=== PATIENT | male | born 1975 ===

== ENCOUNTER 2022-01-27 02:31 | Emergency (ER) | payer OTHER, SELFPAY ==
--- NOTE | ~2022-01-27 | CT_ITS ---
EXAMINATION: CT ABDOMEN AND PELVIS WITHOUT CONTRAST CLINICAL INFORMATION: Right flank pain COMPARISON: None TECHNIQUE: Multidetector volumetric imaging was performed from the superior aspect of the liver through the pubic symphysis. Sagittal and coronal reformatted images were obtained on the technologist's workstation. This CT examination was performed using dose optimization techniques as appropriate, variously including the following: *Automated exposure control *Adjustment of mA and/or kV according to patient size (this includes techniques or standardized protocols for targeted exams where dose is matched to indication/reason for exam; i.e. extremities or head) *Use of iterative reconstruction technique DLP: 732 mGy-cm FINDINGS: LUNG BASES: The visualized lung bases are unremarkable. LIVER, GALLBLADDER, AND BILIARY TREE: The liver is normal in size, shape, and attenuation. No focal hepatic lesion or biliary ductal dilatation is present. The gallbladder is unremarkable with no evidence of radiopaque gallstones, gallbladder wall thickening, or obvious pericholecystic inflammatory changes. PANCREAS: Unremarkable. SPLEEN: Unremarkable. ADRENAL GLANDS: Unremarkable. KIDNEYS AND URETERS: The kidneys are normal in size, shape, and attenuation. No hydronephrosis, hydroureter, or calculi seen. No perinephric stranding. BLADDER: Decompressed with no gross abnormality. GASTROINTESTINAL TRACT: The small and large bowel are unremarkable. The appendix is unremarkable. ABDOMINAL WALL: No significant hernia is appreciated. LYMPH NODES: Normal. VASCULAR: Unremarkable. PELVIC VISCERA: The prostate and seminal vesicles are unremarkable. OSSEOUS STRUCTURES: No acute or suspicious osseous abnormality. Spinal fusion hardware at L5-S1. Mild degenerative changes in the hips. CT/CT abdomen pelvis wo IV con IMPRESSION: No acute findings in the abdomen or pelvis. No hydronephrosis or nephrolithiasis. Normal appendix. Fleischner guidelines were followed.
[2022-01-27 02:45] VITALS: BP 157/109; PULSE 88; RESP 20; TEMP 36.7; O2SAT 99; BMI 32.5
[2022-01-27 03:31] LABS: Hematocrit 40.3 % (42.0-52.0); Hemoglobin 14.4 g/dl (14.0-18.0); Mean Corpuscular HGB Conc 35.7 g/dl (31.0-36.0); Mean Corpuscular Volume 89.6 fL (80.0-98.0); Mean Platelet Volume 8.8 fL (9.4-12.4); Platelet Count 343 X10*3/uL (160-400); Red Cell Distribution Width 11.4 % (11.0-16.0); White Blood Count 7.8 X10*3/uL (4.8-10.8)
[2022-01-27 03:54] LABS: Alanine Aminotransferase 28 U/L (0-40); Albumin Level 4.3 g/dL (3.5-5.0); Alkaline Phosphatase 65 U/L (39-117); Anion Gap 15 (12-20); Aspartate Amino Transferase 15 U/L (5-37); Bilirubin Direct 0.2 mg/dL (0.0-0.5); Bilirubin Total 0.4 mg/dL (0.0-1.0); Blood Urea Nitrogen 9 mg/dL (9-16); Calcium 9.3 mg/dL (8.4-10.2); Carbon Dioxide 23 mmol/L (22-29); Chloride 105 mmol/L (96-108); Creatinine Clr Calc Pharmacy 133.1; Estimated Glomerular Filt Rate > 60; Glucose Random 119 mg/dL (60-115); Lipase 15 U/L (8-78); Potassium 3.9 mmol/L (3.3-5.1); Sodium 139 mmol/L (135-145)
[2022-01-27 04:00] VITALS: BP 157/91; PULSE 81; RESP 18; TEMP 36.8; O2SAT 98
--- NOTE | 2022-01-27 04:52 | ED_ITS ---
HPI - Back Pain/Injury General Chief Complaint: Back Pain/Injury Stated Complaint: severe back pain Time Seen by Provider: 01/27/22 04:51 History of Present Illness HPI Narrative: Patient is a 46-year-old male no history kidney stones presents today with having back pain in the right flank area nonradiating. No fever no chills no pain on urination. No bowel urinary incontinence. No focal weakness. Pain is sharp has a previous history of back Related Data Previous Rx's Medication Instructions Recorded cyclobenzaprine 10 mg tablet 10 mg PO TID PRN pain #14 tabs 01/27/22 Allergies Allergy/AdvReac Type Severity Reaction Status Date / Time aspirin Allergy Unknown Unknown Verified 01/27/22 05:32 naproxen [From ALEVE] Allergy Unknown SWELLING Verified 01/27/22 05:32 OF THE MOUTH Review of Systems Review of Systems: Positive right flank pain no nausea PMFSH Social History Social History Advance Directives: No Physical Exam Vital Signs: Vital Signs: Last Vital Signs Temp 98.2 F 01/27/22 05:31 Pulse 82 01/27/22 05:31 Resp 14 01/27/22 05:31 BP 132/90 H 01/27/22 05:31 Pulse Ox 98 01/27/22 04:00 O2 Del Method 01/27/22 04:00 O2 Flow Rate 99 01/27/22 05:31 BMI result Body Mass Index 32.5 Appearance: Alert. Oriented X3. No acute distress. Eyes: Pupils equal, round and reactive to light. ENT: Pharynx normal. Neck: Normal inspection. Neck supple. No lymph nodes noted. No crepitus CVS: Normal heart rate and rhythm. Pulses normal. Normal S1 and S2 Respiratory: No respiratory distress. Breath sounds normal. No Wheezing. No rales Abdomen: Soft and nontender. No rigidity. No distention. good BS x4 Skin: Skin warm and dry. Normal skin color. Normal skin turgor. Extremities: No lower extremity edema. Neurovascular intact to all extremities. No Lacerations. No Rash Neuro: Oriented X 3. No motor deficit. No sensory deficit. Moving all extermities. No slurred speech MDM - Back Pain/Injury MDM Narrative Medical decision making narrative: CT negative for any acute evidence of kidney stone. Patient's white count is normal. Urine showed no signs of infection. No bowel urinary incontinence. Will have patient follow-up on outpatient basis for his back pain. Lab Data Result diagrams: 01/27/22 03:01/27/22 03:26 Labs: Lab Results 01/27/22 01/27/22 01/27/22 Range/Units 03: 03:26 05:02 WBC 7.8 (4.8-10.8) X10*3/uL RBC 4.50 L (4.60-5.80) X10*6/uL Hgb 14.4 (14.0-18.0) g/dl Hct 40.3 L (42.0-52.0) % MCV 89.6 (80.0-98.0) fL MCH 32.0 (27.0-33.0) pg MCHC 35.7 (31.0-36.0) g/dl RDW 11.4 (11.0-16.0) % Plt Count 343 (160-400) X10*3/uL MPV 8.8 L (9.4-12.4) fL Absolute Nucleated RBC 0.000 (0.0-0.012) X10*3/uL Nucleated RBC % (auto) 0.0 (0.0-0.2) /100WBC Sodium 139 (135-145) mmol/L Potassium 3.9 (3.3-5.1) mmol/L Chloride 105 (96-108) mmol/L Carbon Dioxide 23 (22-29) mmol/L Anion Gap 15 (12-20) BUN 9 (9-16) mg/dL Creatinine 0.79 (0.5-1.4) mg/dL Estim Creat Clear Calc 133.1 Estimated GFR > 60 Random Glucose 119 H (60-115) mg/dL Calcium 9.3 (8.4-10.2) mg/dL Total Bilirubin 0.4 (0.0-1.0) mg/dL Direct Bilirubin 0.2 (0.0-0.5) mg/dL AST 15 (5-37) U/L ALT 28 (0-40) U/L Alkaline Phosphatase 65 (39-117) U/L Total Protein 7.0 (6.5-8.0) g/dL Albumin 4.3 (3.5-5.0) g/dL Lipase 15 (8-78) U/L Urine Color Yellow Urine Appearance Clear Urine pH 6.5 (5.0-9.0) Ur Specific [place] 1.015 (1.005-1.025) Urine Protein Negative (Neg-Trace) mg/dL Urine Glucose (UA) Negative (Negative) mg/dL Urine Ketones Negative (Negative) mg/dL Urine Blood Negative (Negative) Urine Nitrite Negative (Negative) Ur Leukocyte Esterase Negative (Negative) Urine RBC 0-2 (0-2) /HPF Urine WBC 0-5 (0-5) /HPF Ur Squamous Epith Cells 0-2 (0-2) /HPF Urine Bacteria None Seen (None Seen) Hyaline Casts 0-2 (0-2) /LPF Discharge Plan Discharge Clinical Impression: Strain of lumbar region Patient Disposition: Home, Self-Care Instructions: Acute Low Back Pain (ED) Prescriptions: New cyclobenzaprine 10 mg tablet 10 mg PO TID PRN (Reason: pain) Qty: 14 0RF Referrals: Physician,Unknown J [Primary Care Provider] -
[2022-01-27] MEDS: HYDROcodone Bit/Acetam 5/325 TABLET 1 TAB PO (05:00)
--- NOTE | 2022-01-27 05:01 | PC.NURSE ---
pt a&ox3, vss, medicated per provider order, urine sample obtained, pt pending CT scan.
[2022-01-27 05:08] LABS: Appearance Urine Clear; Color Urine Yellow; Glucose Urine UA Negative (Negative); Leukocyte Esterase Urine Negative (Negative); Nitrite Urine Negative (Negative); PH 6.5 (5.0-9.0); Specific Gravity - Urine 1.015 (1.005-1.025); Urine Blood Negative (Negative); Urine Ketones Negative (Negative); Urine Protein Negative (Neg-Trace)
[2022-01-27 05:13] LABS: Bacteria Urine None Seen (None Seen); Hyaline Casts Urine 0-2 /LPF (0-2); RBC Urine 0-2 /HPF (0-2); Squamous Epithelial Cell Urine 0-2 /HPF (0-2); WBC Urine 0-5 /HPF (0-5)
[2022-01-27 05:31] VITALS: BP 132/90; PULSE 82; RESP 14; TEMP 36.8
== END 2022-01-27 06:05 | disposition home or self-care (01) ==
PROVIDERS: Emergency Provider Emergency Medicine Emergency Medical Services
DX: M54.50 Low back pain, unspecified (principal); R10.9 Unspecified abdominal pain; Z79.899 Other long term (current) drug therapy
CPT/HCPCS: 36415; 74176; 80053; 81001; 82248; 83690; 85027; 99284

== ENCOUNTER 2024-05-24 18:09 | Emergency (ER) | payer OTHER, SELFPAY ==
[2024-05-24 18:37] VITALS: BP 148/88; O2SAT 99
[2024-05-24 19:05] VITALS: BP 165/108; PULSE 87; RESP 18; TEMP 37.7; O2SAT 97; BMI 33.2
--- NOTE | 2024-05-24 22:53 | ED_ITS ---
HPI - Back Pain/Injury General Chief Complaint: Back Pain/Injury Stated Complaint: back pain unable to walk A&) x4 + ABC's, [place] Time Seen by Provider: 05/24/24 22:52 Source: patient Mode of arrival: ambulatory Limitations: no limitations History of Present Illness ED Provider: HPI Narrative: Patient has chronic low back pain status post lumbar surgery in 2010 been followed by neurosurgeon and plan to see pain clinic had MRI 2 days ago on gabapentin and Lyrica comes here as still having too much pain no paresthesia pain is radiating to lower back only no recent injury no bladder or bowel involvement Related Data Previous Rx's ?Medication ?Instructions ?Recorded cyclobenzaprine 10 mg tablet 10 mg PO TID PRN pain #14 tabs 01/27/22 cyclobenzaprine 10 mg tablet 10 mg PO Q8H #20 tabs 05/24/24 oxycodone 5 mg tablet 5 mg PO Q6H PRN pain #20 tabs 05/24/24 Allergies Allergy/AdvReac Type Severity Reaction Status Date / Time aspirin Allergy Unknown Unknown Verified 05/24/24 19:08 naproxen [From ALEVE] Allergy Unknown SWELLING Verified 05/24/24 19:08 OF THE MOUTH Review of Systems Review of Systems: Yes all other systems are reviewed and are negative PMFSH Social History Social History Advance Directives: No Advance Directives Information Provided: No Do you have a plan to hurt others: No Plan Physical Exam Vital Signs: Vital Signs: Last Vital Signs Temp 98.2 F 05/25/24 00:18 Pulse 64 05/25/24 00:18 Resp 16 05/25/24 00:18 BP 158/86 H 05/25/24 00:18 Pulse Ox 98 05/25/24 00:18 O2 Del Method Room Air 05/25/24 00:18 BMI result Body Mass Index 33.2 Appearance: Alert. Oriented X3. No acute distress. Eyes: No pallor or icterus ENT: Pharynx normal. Oral Mucosa moist Neck: Normal inspection. Neck supple. CVS: Normal heart rate and rhythm. Pulses normal. Respiratory: No respiratory distress. Equal air entry bilateral, no wheezing/rales/rhonchi Abdomen: Soft and nontender. Bowel sounds are present, no mass palpable, no CVA tenderness Skin: Skin warm and dry. Normal skin color. Normal skin turgor. Extremities: No lower extremity edema. No calf tenderness back; diffuse tenderness lumbar area sacral sensations intact SLR negative bilaterally Neuro: Oriented X 3. No motor deficit. No sensory deficit.No cerebellar signs , cranial nerves II-XII intact Medications Administered Discontinued Medications Generic Name Dose Route Start Last Admin Trade Name Freq PRN Reason Stop Dose Admin Cyclobenzaprine HCl 10 mg 05/24/24 23:50 05/25/24 00:18 Cyclobenzaprine Hcl 10 Mg Tablet PO 05/24/24 23:51 10 mg ONCE ONE Administration Oxycodone HCl 10 mg 05/24/24 23:50 05/25/24 00:18 Oxycodone Hcl Immed Release 5 Mg Tablet PO 05/24/24 23:51 10 mg ONCE ONE Administration Medical Decision Making Medical Decision Making [facility] Narrative: Patient with chronic low back pain been for with neurosurgeon in pain clinic no acute deficit at this time will prescribe oxycodone and Flexeril advised to follow with neurosurgeon Discharge Plan Discharge Clinical Impression: Chronic low back pain Patient Disposition: Home, Self-Care Instructions: Back Pain (ED) Additional Instructions: Take pain medication muscle relaxant as prescribed Follow up with neurosurgeon/Pain Clinic as planned Prescriptions: New cyclobenzaprine 10 mg tablet 10 mg PO Q8H Qty: 20 0RF oxycodone 5 mg tablet 5 mg PO Q6H PRN (Reason: pain) Qty: 20 0RF Rx Instructions: Partial Fill upon patient request. No Action cyclobenzaprine 10 mg tablet 10 mg PO TID PRN (Reason: pain) Qty: 14 0RF Print Language: Citizen [place]
[2024-05-25 00:18] VITALS: BP 158/86; PULSE 64; RESP 16; TEMP 36.8; O2SAT 98
[2024-05-25] MEDS: Cyclobenzaprine HCl 10 MG TABLET PO (00:18)
[2024-05-25] MEDS: oxyCODONE HCl Immed Release 5 MG TABLET 10 MG PO (00:18)
[2024-05-25 00:23] VITALS: BP 158/86; PULSE 64; RESP 16; TEMP 36.8; O2SAT 98
== END 2024-05-25 00:23 | disposition home or self-care (01) ==
PROVIDERS: Emergency Provider Internal Medicine
DX: G89.29 Other chronic pain (principal); M54.50 Low back pain, unspecified
CPT/HCPCS: 99283; 99284

== ENCOUNTER → 2024-06-12 10:54 | Outpatient (BNVA) | payer OTHER, SELFPAY | PROVIDERS: PCP Internal Medicine; Visit Provider Anesthesiology | DX: M79.7 Fibromyalgia (principal); M53.3 Sacrococcygeal disorders, not elsewhere classified; M46.1 Sacroiliitis, not elsewhere classified; G89.29 Other chronic pain | CPT/HCPCS: 99202 ==

== ENCOUNTER 2024-07-10 14:28 | Outpatient (AMB) | payer OTHER, SELFPAY ==
[2024-07-10 14:42] VITALS: BP 147/81; PULSE 78; RESP 16; O2SAT 98; BMI 34.3
--- NOTE | 2024-07-10 14:42 | A.OFFVIS_ITS ---
Vital Signs 07/10/24 14:42 Height 5 ft 9 in Weight 232 lb BMI 34.3 BP 147/81 H Blood Pressure Location Lt brachial Position Sitting Respiration 16 Pulse 78 Pulse Source Pulse Oximeter Pulse Oximetry (%) 98 Oxygen Delivery Method Room Air Intake Visit Reasons: 1 month FU Civil Engineering Manager Required: Yes Civil Engineering Manager Services: Civil Engineering Manager Present Civil Engineering Manager Name: [id number] Elisabeth Allergies aspirin Allergy (Unknown, Verified 07/10/24 14:44) Unknown naproxen [From ALEVE] Allergy (Unknown, Verified 07/10/24 14:44) SWELLING OF THE MOUTH Medication List - Last Reconciled 07/10/24 by Albertina Kahn, VACUUM FRAME OPERATOR cyclobenzaprine 10 mg PO TID PRN cyclobenzaprine 10 mg PO Q8H gabapentin mg PO oxycodone 5 mg PO Q6H PRN pregabalin mg PO BID sertraline mg PO ONCE HPI Comments Details: Garret is back in my office for the 1 month follow-up. I was planning to start him on milnacipran/Savella to treat his fibromyalgia. For that I need to discuss with his psychiatrist his medication he is currently on SSRIs. Unfortunately I was not able to get into contact with his psychiatrist. I recommended him to discuss this situation with his psychiatrist and request him to give me a call. very pleasant 48 years old gentleman who presents in my office with complains on multiple pain generators. He reports pain in bilateral shoulders bilateral elbows bilateral hands bilateral fingers he also reports pain in bilateral knees and bilateral feet. He also reports pain in the lower back with radiation into the right hip and the right thigh to the level of the knee but not below that level. He reports that his pain today is 8/10. heat applications make his pain worse. He stated that oral medications help his pain minimally. He takes gabapentin 800 mg twice a day for his pain. He is allergic to oxycodone and Flexeril. He had MRI of the cervical and lumbar spine. Cervical spine MRI is dictated as below. Lumbar spine MRI is not available for me today. He was examined by Dr. Pam Raya and was diagnosed with sacroiliitis. He had ph ysical therapy in March at [facility] with no improvement for his pain. He received multiple injections of steroids in multiple joints in the past. He denies any help from those injections. He denies past medical history. He reports laminectomy in the lumbar spine 6 years ago. He denies smoking cigarettes denies drinking alcohol he drinks coffee and caffeinated beverages and he admits taking medicinal marijuana. Review of Systems Const All systems reviewed & are unremarkable except as noted in HPI and below ENT Reports Normal hearing present Neuro Reports Normal hearing present, Denies Abnormal speech present, Denies confusion and Denies Sensory deficit (Neuro) Psych Denies confusion Physical Exam Vital Signs: Last Vital Signs Pulse 78 07/10/24 14:42 Resp 16 07/10/24 14:42 BP 147/81 H 07/10/24 14:42 Pulse Ox 98 07/10/24 14:42 Oxygen Delivery Method Room Air 07/10/24 14:42 BMI result Body Mass Index 34.3 Const General: no acute distress; No confusion Orientation/consciousness: patient oriented x3 and No confusion Eyes General: appearance normal, both eyes and all related structures Pupils: Equal, round and reactive pupils present EOM: EOMs intact bilaterally Neck Neck: Yes full ROM Chest Chest palpation & inspection: normal inspection of the chest Resp Effort & Inspection: normal respiratory effort, able to speak in complete sentences, normal respiratory pattern, no audible wheezes and no cough Cardio Jugular venous distension: no JVD GI Inspection: Yes normal to inspection Back/Spine/Pelvis Other: Tenderness on palpation in projection of the right sacroiliac joint. Gaenslen test is positive on the right. Odilon test is positive on the right. Pelvic compression test is positive on the right. Neuro General: patient oriented x3, gait normal and No confusion Cranial nerves: Yes CN's II-XII intact bilaterally, Yes Equal, round and reactive pupils present, Yes Normal hearing present and Yes Ability to bilaterally elevate shoulders present Speech: No Abnormal speech present Gait exam (Neuro): Normal gait present Motor exam (neuro): 5/5 motor strength present throughout Sensory Exam: No Sensory deficit (Neuro) Extrem General: No pedal edema Psych Speech and movement: Normal speech and movement present Affect: normal affect Attitude: cooperative Thought process: Normal thought process present Thought content: Normal thought content present Insight: Good insight present (Psych) Judgement: Good judgement present (Psych) Results Reviewed Results Reviewed: MRI cervical spine without contrast 05/16/2024 findings: Bones appear normal. No fracture or deformity. No irregular edema. Alignment normal. Spinal cord appears normal in signal. Soft tissue soft tissues appeared normal. Cervical spine levels: C2-C3 degenerative changes cause minimal right-sided foraminal stenosis. C3-C4 mild degenerative changes are noted with mild right-sided foraminal stenosis. C4-C5 normal without evidence of significant stenosis. C5-C6: Minimal degenerative bulge with only minimal spinal canal stenosis. Findings can minimally right-sided foraminal stenosis. C6-C7 degenerative disc bulge. Minimal canal stenosis. Finding cause mild right-sided foraminal stenosis. C7-T1 minimal degenerative changes with minimal left-sided foraminal stenosis. Assessment & Plan Assessment & Plan (1) Fibromyalgia: Code(s): M79.7 - Fibromyalgia Category: Medical (2) Chronic pain syndrome: Code(s): G89.4 - Chronic pain syndrome Category: Medical (3) Chronic right sacroiliac joint pain: Code(s): M53.3 - Sacrococcygeal disorders, not elsewhere classified; G89.29 - Other chronic pain Category: Medical (4) Sacroiliitis: Code(s): M46.1 - Sacroiliitis, not elsewhere classified Category: Medical Plan Most likely diagnosis of this patient is fibromyalgia. Cervical MRI basically is completely normal. Lumbar spine MRI is not available for me. He does not want to do low-impact aerobic exercises to help himself. Savella/milnacipran could be a potentially good medication however he is on SSRIs. He is currently taking duloxetine. I need to get into contact his doctor psychiatrist discuss the situation. I recommended patient to work on this to happen.. [phone] Soumya Fagan] He went for consult with clinical informatics specialist and no rheumatological condition was found. I told the patient that the best treatment for fibromyalgia would be low-impact aerobic exercise. Patient's seem to be reluctant to go for I aerobic exercises. Next appointment will be scheduled when I will complete the conversation with his psychiatrist. Patient Instructions: press machine operator from voice number [phone] was helping us to maintain this conversation in [place]. Coding Level of Care Code Est Pt Level 3 (29869) Diagnoses Fibromyalgia M79.7 Chronic pain syndrome G89.4 Chronic right sacroiliac joint pain M53.3; G89.29 Sacroiliitis M46.1
--- OUTSIDE RECORDS SUMMARY | 2024-07-10 17:25 | XMS_ITS | Clinical Summary ---
Author Organization [address] [facility] Address [address] [place] [address] Phone Care Team Providers Care Water Resource Specialist Name Role Phone Jodi Mooney MD Primary Care Provider [phone] Allergies Active Allergy Reactions Criticality Noted Date Comments Aspirin Swelling 05/24/2017 Naproxen Sodium Swelling 05/24/2017 Tolerated advil Medications zolpidem (AMBIEN) 10 mg tablet Take 1 tablet by mouth daily. Active gabapentin (NEURONTIN) 800 mg tablet Take 1 tablet (800 mg total) by mouth. Active sertraline (ZOLOFT) 100 mg tablet TAKE 1 TABLET BY MOUTH EVERY DAY AFTER 50MG TABLETS ARE FINISHED 4 Active sertraline (ZOLOFT) 50 mg tablet PLEASE SEE ATTACHED FOR DETAILED DIRECTIONS 4 Active Active Problems Problem Noted Date Diagnosed Date Sacroiliitis, not elsewhere classified 5 Assessment & Plan (05/17/2024 3:43 PM EST): Mr. Fairchild describes severe pain in the left side of the low back radiating into the hip. He had pain with palpation of the left SI joint as well as pain with Odilon's maneuver, a positive Gaenslen's test and a positive SI joint compression test. Going to send him to physiatry for consideration of a left SI joint injection. Class 1 obesity 02/09/2024 Chronic midline low back pain with bilateral sci atica 02/09/2024 Assessment & Plan (05/17/2024 3:37 PM EST): Mr. Isidra najera continues to suffer with mid back pain and radiation to the right buttock and down the side of the leg. On the left side it goes to the buttock and out to the hip. He takes NSAIDs, has been through physical therapy, continues his exercises at home, but still has severe pain.. X-rays of the lumbar spine from February 07, 2024 show evidence of his prior L5-S1 fusion construct. Hardware all is in good position. There is no abnormal motion with flexion and extension. I think it is time to get an MRI of the lumbar spine. Assessment & Plan (03/20/2024 12:15 PM EST): Mr. Octavio Fairchild continues to describe midline low back pain with radiation down the back of the right leg. Since our last visit about 2 months ago, he has made it to 2 physical therapy visits. I think he has to make a little bit more of an effort before we can get an MRI approved. He said he understood. He has his third visit today. We will see him back in the office in 6 to 8 weeks for repeat evaluation. Cervical spondylosis with radiculopathy 02/09/20 Assessment & Plan (05/17/2024 3:33 PM EST): Mr. Fairchild continues to describe neck pain with radiation to both shoulders, both elbows, wrists, and hands. He says that gabapentin helps a little. He has been through physical therapy without relief. He has obvious pain and stiffness with motion and this does seem to affect his effort with strength testing. Considering that, he does demonstrate good strength in all major muscle groups. His MRI of the cervical spine from [place] dated 04/25/2024. This did show multilevel cervical spondylosis but no high-grade canal nor foraminal stenosis. There was minimal to mild stenosis at multiple levels but no nerve root compression. His EMG and nerve conduction study from April 02, 2024 was unremarkable. I explained to Mr. Arnold that I thought his neck and upper extremity symptoms were likely related to his fibromyalgia. I explained that there was nothing on his cervical MRI that we could fix with surgery that would likely help his pain syndrome. Assessment & Plan (03/20/2024 12:16 PM EST): Mr. Octavio Fairchild continues to suffer with neck pain and radiation to both shoulders, down the triceps into the elbow on each side. Since his last visit about 2 months ago, he has made it to 2 physical therapy sessions. His third session will be later today. My intent was to order an MRI if he had persistent pain but he has not yet had sufficient therapy to justify the test. He is neurologically intact. He will come back in in 6 weeks after finishing up his physical therapy. Dupuytren's disease 08/31/2022 Tendinitis of both wrists 08/31/2022 Polyarthralgia 08/31/2022 Ganglion of left wrist 08/31/2022 Bilateral hand pain 08/02/2022 Chronic right shoulder pain 08/02/2022 Marijuana smoker, episodic 07/13/2021 Chondromalacia of both patellae 07/02/2020 Overview (02/09/2024): 06/2020- noted on MRI- referral to ortho placed. Hypertriglyceridemia 06/26/2019 Elevated glucose 06/26/2019 Varicose veins with pain 02/06/2019 Lumbar spondylosis 11/30/2017 Degenerative disc disease, lumbar 11/30/2017 Anxiety and depression 09/27/2017 Overview (02/09/2024): F/u Dr. Mcgill Fibromyalgia 09/21/2017 Fatty liver 07/19/2017 Anxiety 05/24/2017 Varicose veins of both lower extremities 018 Encounters Date Type Department Care Team Description 05/28/2024 Telephone Neurosurgery [facility] [address] [facility] [address] [place] [address] Dustin Palacios PA 05/24/2024 4:00 PM EST Office Visit [address] [address] Jodi Mooney MD Fibromyalgia (Primary Dx); Degeneration of intervertebral disc of lumbar region with discogenic back pain and lower extremity pain; Cervical spondylosis with radiculopathy 05/22/2024 3:20 PM EST - 05/22/2024 11:59 PM EST Hospital Encounter [facility] MRI [address] [place] [id number] Chronic midline low back pain with bilateral sciatica Discharge Disposition: Home or Self Care 05/22/2024 Telephone Neurosurgery [facility] [address] [facility] [address] [place] [address] Monik Barbosa [place] Appointment ([facility] # [id number] for L/Spine MRI faxed over to [facility] MRI. Will contact pt w/appt.) 05/21/2024 1:00 PM EST Office Visit Orthopedic Surgery [facility] [address] [facility] [address] [place] [address] Francisca Walton MD Fibromyalgia (Primary Dx); Polyarthralgia 05/17/2024 1:00 PM EST Office Visit Neurosurgery [facility] [address] [facility] [address] [place] [address] Dustin Palacios PA Cervical spondylosis with radiculopathy (Primary Dx); Chronic midline low back pain with bilateral sciatica; Sacroiliitis, not elsewhere classified ([facility]/HCC) 04/25/2024 3:18 PM EST - 04/25/2024 11:59 PM EST Hospital Encounter [facility] MRI [address] [place] [phone] Numbness and tingling in both hands Discharge Disposition: Home or Self Care from Last 3 Months Immunizations Name Administration Dates Next Due Influenza Quadravalent, MDCK , 0.5ml, preservative free (Flucelvax) 6mo and older 01/27/2020,06/25/2019,04/24/2018 Pfizer SARS-CoV-2 COVID-19, mRNA, LNP-S, preservative free 12/17/2020 Tdap Tetanus diptheria acell ular pertussis (Boostrix; Adacel) 7yo and older 04/24/2018 Surgical History Surgery Date Site/Laterality Comments TONSILLECTOMY PROCEDURE: HISTORICAL TONSILLECTOMY MULTIPLE TOOTH EXTRACTIONS PROCEDURE: HISTORICAL DENTAL EXTRACTION OTHER SURGICAL HISTORY PROCEDURE: ---- OTHER ----; COMMENT: ganglion left wrist OTHER SURGICAL HISTORY Right PROCEDURE: ---- OTHER ----; COMMENT: partial amputation r 5th finger LUMBAR LAMINECTOMY 03/26/2018 PROCEDURE: HISTORICAL LUMB LAMINECTOMY SHOULDER SURGERY Right PROCEDURE: HISTORICAL SHOULDER SURGERY Medical History Medical History Date Comments Fatty liver 07/19/2017 DX:Fatty liver Fibromyalgia 09/21/2017 DX:Fibromyalgia Depression 09/27/2017 DX:Depression History of lumbar laminectomy 04/24/2018 DX :History of lumbar laminectomy Arthritis DX:Arthritis Difficulty balancing DX:Difficul ty balancing Shortness of breath DX:Shortness of breath Leg pain, bilateral DX:Leg pain, bilateral Low back pain Family History Medical History Relation Name Comments Diabetes Father hypertension, a sthma, back trouble Other: Other Mother varicose veins, hypertension Relation Name Status Comments Father Mother Alive Social History Tobacco Use Types Packs/Day Years Used Date Smoking Tobacco: Former Cigarettes Q uit: 05/08/1999 Smokeless Tobacco: Never Tobacco Cessation:Counseling Given: Not Answered Alcohol Use Standard Drinks/Week Comments No 0 (1 standard drink = 0.6 oz pur e alcohol) Sex and Gender Information Value Date Recorded Sex Assigned at Male 04/24/2024 10:22 AM EST Legal Sex Male 12:00 PM EST Gender Identity Not on file Sexual Orientation Not on file Obstetrics History Last Filed Vital Signs Vital Sign Reading Time Taken Comments Blood Pressure 124/70 05/24/2024 4:15 PM EST Pulse 80 05/24/2024 4:15 PM EST Temperature 36.4 ??C (97.5 ??F) 05/24/2024 4:15 PM ES T Respiratory Rate 14 05/24/2024 4:15 PM EST Oxygen Saturation - - Inhaled Oxygen Concentration - - Weight 102 kg (225 lb) 05/24/2024 4:15 PM EST Height 175.3 cm (5' 9 ) 05/24/2024 4:15 PM EST Body Mass Index 33.23 05/24/2024 4:15 PM EST Plan of Treatment Health Maintenance Due Date Last Done Comments Hepatitis A Vaccines (1 of 2 - Risk 2-dose series) 1992 Hepatitis B Vaccines (1 of 3 - 19+ 3-dose series) 1992 Pneumococcal Vaccine: 50+ Years (1 of 2 - PCV) 1992 Pneumococcal Vaccine: Pediatrics (0 to 5 Years) and At-Risk Patients (6 to 64 Years) (1 of 2 - PCV) 1992 Colorectal Cancer Screening: Colonoscopy 04/16/2022 Depression Screening 04/16/2022 Social Influencers of Health Screening 04/16/2022 Zoster Vaccines (1 of 2) 11/26/2023 COVID-19 Vaccine (3 - 2023-2 5 season) 2024 01/22/2021, 12/17/2020 Influenza Vaccine (#1) 2024 , 06/25/2019, 04/24/2018 Cholesterol Screening (Lipid Panel) 07/15/2026 07/15/2021 DTaP,Tdap,and Td Vaccines (2 - Td or Tdap) 04/24/2028 04/24/2018 HIV Screening Completed 06/25/2019 Hepatitis C Screening Completed 06/25/2019 HIB Vaccines Aged Out No longer eligi ble based on patient's age to complete this topic HPV Vaccines Aged Out No longer eligi ble based on patient's age to complete this topic IPV Vaccines Aged Out No longer eligi ble based on patient's age to complete this topic MMR Vaccines Aged Out No longer eligi ble based on patient's age to complete this topic Meningococcal ACWY Vaccine Aged Out N o longer eligible based on patient's age to complete this topic Meningococcal B Vacine Aged Out No lo nger eligible based on patient's age to complete this topic RSV Immunization Patients Under 20 months Aged Out No longer eligible b ased on patient's age to complete this topic Varicella Vaccines Aged Out No longer eligible based on patient's age to complete this topic Goals Goal Patient Goal Type Associated Problems Recent Progress Patient-Stated? Author No pain General No Chester Araiza PT shoulder and neck goals: STG 8 visits from shoulder/neck eval General No Chester Araiza PT Note: Pt will improve C rotation ROM to >70 deg to aid in looking over either shoulder prn Pt will improver R SB ROM to 28 deg in order to aid using phone Pt will improve active shoulder flexion 100 deg B Pt will improve active R shoulder abd to 120 deg and 105 deg on left Neck and shoulder goals: LTG 14 visits from neck/shoulder eval General Chester Pereira, PT Note: Pt will wake <3 x/wk due to shoulder and neck pain Pt will have no limitations in toileting due to shoulder pain Pt will require no assistance in dressing as it relates to shoulder and neck Sx. Pt will be able to flex neck and use phone x 30 min Procedures Procedure Name Priority Date/Time Associated Diagnosis Comments MR LUMBAR SPINE WO AND W CONTRAST Routine 05/22/2024 4:18 PM EST Chronic midline low back pain with bilateral sciatica XR SHOULDER 2+ VIEWS BILAT Routine 05/21/2024 2:05 PM EST Pain XR WRIST 3+ VIEWS BILAT Routine 05/21/2024 2:05 PM EST Pain MR CERVICAL SPINE WO CONTRAST Routine 04/25/2024 4:11 PM EST Numbness and tingling in both hands LIPID PANEL Routine 07/15/2021 HEPATITIS C SCREENING Routine 06/25/2019 HIV SCREENING Routine 06/25/2019 from Last 3 Months or Most Recently Relevant to Health Maintenance Results * MR Lumbar Spine wo and w Contrast (05/22/2024 4:18 PM EST) Anatomical Region Laterality Modality L-spine, Spine Magnetic Resonan ce 05/27/2024 9:44 AM EST Impressions 05/27/2024 10:26 AM EST Stable exam. ??Posterior decompression and fusion at L5-S1. ??No new disc protrusion, foraminal stenosis, or spinal canal stenosis. -------- FINAL REPORT -------- Dictated By: SOO RIVERA Dictated Date: 05/27/2024 09:44 ET Assigned Physician: SOO RIVERA Reviewed and Electronically Signed By: SOO RIVERA Signed Date: 05/27/2024 10:26 ET Workstation ID: [id number] Transcribed By: Self Edit Transcribed Date: 05/27/2024 09:44 ET Narrative 05/27/2024 10:26 AM EST PROCEDURE: Lumbar spine MRI INDICATION: Pain TECHNIQUE: Multiplanar, multisequence MRI of the Lumbar spine Without contrast. COMPARISON: ??04/07/2021. FINDINGS: Lumbar alignment is within normal limits. No fracture or suspicious marrow replacing lesion. ??L2 intraosseous hemangioma is benign. Fusion across the L5-S1 disc. ??Disc height and signal are otherwise relatively preserved. Posterior decompression and fusion at L5-S1. ??Mild lower lumbar predominant degenerative facet arthritis. Conus medullaris is normal and terminates at L1. ??No abnormal enhancement within the spinal canal. ??No epidural collection or mass within the spinal canal. Postsurgical changes in the lower lumbar paraspinal soft tissues. ??Visualized intra-abdominal and pelvic structures are normal. Findings by level: T12-L1: No focal disc protrusion, foraminal stenosis, or spinal canal stenosis. L1-2: No focal disc protrusion, foraminal stenosis, or spinal canal stenosis. L2-3: No focal disc protrusion, foraminal stenosis, or spinal canal stenosis. L3-4: No focal disc protrusion, foraminal stenosis, or spinal canal stenosis. L4-5: Small central protrusion is unchanged. ??No new disc protrusion, foraminal stenosis, or spinal canal stenosis. L5-S1: Posterior decompression and fusion. ??No focal disc protrusion, foraminal stenosis, or spinal canal stenosis. Procedure Note Soo Rivera MD - 05/27/2024 PROCEDURE: Lumbar spine MRI INDICATION: Pain TECHNIQUE: Multiplanar, multisequence MRI of the Lumbar spine Withoutcontrast. COMPARISON: 04/07/2021. FINDINGS: Lumbar alignment is within normal limits. No fracture or suspicious marrow replacing lesion. L2 intraosseoushemangioma is benign. Fusion across the L5-S1 disc. Disc height and signal are otherwiserelatively preserved. Posterior decompression and fusion at L5-S1. Mild lower lumbarpredominant degenerative facet arthritis. Conus medullaris is normal and terminates at L1. No abnormal enhancementwithin the spinal canal. No epidural collection or mass within the spinalcanal. Postsurgical changes in the lower lumbar paraspinal soft tissues.Visualized intra-abdominal and pelvic structures are normal. Findings by level: T12-L1: No focal disc protrusion, foraminal stenosis, or spinal canalstenosis. L1-2: No focal disc protrusion, foraminal stenosis, or spinal canalstenosis. L2-3: No focal disc protrusion, foraminal stenosis, or spinal canalstenosis. L3-4: No focal disc protrusion, foraminal stenosis, or spinal canalstenosis. L4-5: Small central protrusion is unchanged. No new disc protrusion,foraminal stenosis, or spinal canal stenosis. L5-S1: Posterior decompression and fusion. No focal disc protrusion,foraminal stenosis, or spinal canal stenosis. IMPRESSION: Stable exam. Posterior decompression and fusion at L5-S1. No new discprotrusion, foraminal stenosis, or spinal canal stenosis. -------- FINAL REPORT -------- Dictated By: SOO RIVERA Dictated Date: 05/27/2024 09:44 ET Assigned Physician: SOO RIVERA Reviewed and Electronically Signed By: SOO RIVERA Signed Date: 05/27/2024 10:26 ET Workstation ID: [id number] Transcribed By: Self Edit Transcribed Date: 05/27/2024 09:44 ET us Dustin VILLA IMG MRI PROCEDURES Final Resu lt * XR Shoulder 2+ Views bilat (05/21/2024 2:05 PM EST) Anatomical Region Laterality Modality Upper Extremities, Shoulder Bilateral Comp uted Radiography Narrative 05/21/2024 3:31 PM EST AP, true AP, axillary, and Y view of both shoulders were obtained on 05/21/2024. ??There is a prior images of the left shoulder from 2021 available for comparison. ??There does not appear to be any obvious fractures, worrisome lytic lesions, or unusual soft tissue calcifications. On the right shoulder there is some slight squaring off of the AC joint consistent with very early arthritis. ??On the Y view there is no significant overhang at the AC joint. ??Joint space of the glenohumeral articulation is well-preserved. On the patient's left side similarly he has some squaring off of the AC joint. ??There is a small speck of ossification adjacent to the humeral head on the AP but no large calcifications. ??No significant AC joint overhang on the Y view. ??The humeral joint articulation narrowing or arthrosis. Impression: Bilateral shoulder series without evidence of acute fracture or lesions. us Francisca Walton MD IMG XR PROCEDURES Final Resul t * XR Wrist 3+ Views bilat (05/21/2024 2:05 PM EST) Anatomical Region Laterality Modality Upper Extremities, Wrist Bilateral Compute d Radiography Narrative 05/21/2024 3:34 PM EST AP, lateral, oblique of both wrist were obtained on 05/21/2024. ??There is some slight squaring off at the STT joints noted on the AP view of the right wrist. ??Some slight widening of the scapholunate interval. ??Slight volar tilt of the lunate noted on the lateral view. Examination the patient's left wrist shows similar changes. ??There is some squaring off the STT joint. ??Slight widening at the scapholunate interval. There is subchondral cyst noted in the lunate on the AP view. ??There is narrowing along the margins of the basal joints and some subchondral cyst formation. ??Joint spaces preserved however. ??Also noted some very slight volar tilt of the lunate on the lateral view. No obvious fractures, lytic lesions, or worrisome calcifications on either image series. us Francisca Walton MD IMG XR PROCEDURES Final Resul t * MR Cervical Spine wo Contrast (04/25/2024 4:11 PM EST) Anatomical Region Laterality Modality C-spine, Spine Magnetic Resonan ce 04/25/2024 4:20 PM EST Impressions 04/25/2024 4:24 PM EST Interval degenerative changes are detailed above. -------- FINAL REPORT -------- Dictated By: Demian Chapa Dictated Date: 04/25/2024 16:20 ET Assigned Physician: Demian Chapa Reviewed and Electronically Signed By: Demian Chapa Signed Date: 04/25/2024 16:24 ET Workstation ID: [id number] Transcribed By: Self Edit Transcribed Date: 04/25/2024 16:20 ET Narrative 04/25/2024 4:24 PM EST MRI of the cervical spine without contrast INDICATION: Cervical radiculopathy. ??Bilateral hand numbness and tingling. COMPARISON: None TECHNIQUE: Multiple MRI sequences were performed of the cervical spine without contrast. FINDINGS: Bones: Bones appear normal. ??No fracture or deformity. ??No irregular edema. Alignment: Appears normal. Spinal cord: Cord appears normal in signal. Soft tissues: Soft tissues appear normal. Cervical Spine Levels C2-C3: Degenerative changes cause minimal right-sided foraminal stenosis. C3-C4: Mild degenerative changes are noted with mild right-sided foraminal stenosis. C4-C5: Normal without evidence of significant stenosis. C5-C6: Minimal degenerative disc bulge with only minimal spinal canal stenosis. ??Findings cause minimal right-sided foraminal stenosis. C6-C7: Minimal degenerative disc bulge. ??Minimal spinal canal stenosis. ??Findings cause mild right-sided foraminal stenosis. C7-T1: Minimal degenerative disc changes with minimal left-sided foraminal stenosis. Procedure Note Demian Chapa MD - 04/25/2024 MRI of the cervical spine without contrast INDICATION: Cervical radiculopathy. Bilateral hand numbness andtingling. COMPARISON: None TECHNIQUE: Multiple MRI sequences were performed of the cervical spinewithout contrast. FINDINGS: Bones: Bones appear normal. No fracture or deformity. No irregularedema. Alignment: Appears normal. Spinal cord: Cord appears normal in signal. Soft tissues: Soft tissues appear normal. Cervical Spine Levels C2-C3: Degenerative changes cause minimal right-sided foraminalstenosis. C3-C4: Mild degenerative changes are noted with mild right-sided foraminalstenosis. C4-C5: Normal without evidence of significant stenosis. C5-C6: Minimal degenerative disc bulge with only minimal spinal canalstenosis. Findings cause minimal right-sided foraminal stenosis. C6-C7: Minimal degenerative disc bulge. Minimal spinal canal stenosis.Findings cause mild right-sided foraminal stenosis. C7-T1: Minimal degenerative disc changes with minimal left-sided foraminalstenosis. IMPRESSION: Interval degenerative changes are detailed above. -------- FINAL REPORT -------- Dictated By: Demian Chapa Dictated Date: 04/25/2024 16:20 ET Assigned Physician: Demian Chapa Reviewed and Electronically Signed By: Demian Chapa Signed Date: 04/25/2024 16:24 ET Workstation ID: [id number] Transcribed By: Self Edit Transcribed Date: 04/25/2024 16:20 ET Result [facility] Francisca Walton MD IMG MRI PROCEDURES Final Resu lt * (ABNORMAL) Lipid panel (07/15/2021) [facility] LDL/HDL Ratio 5(A) 0 - 4 Triglycerides 253(A) 0 - 150 mg/dL Cholesterol 188 0 - 200 mg/dL HDL 41 >=40 mg/dL LDL Cholesterol 97 0 - 100 mg/dL Blood Venous blood specimen / Unknown e [employer] Provider LAB BLOOD ORDERABLES Simona l Result * HIV Screening (06/25/2019) Pathologist [facility] [place] HIV Screening ABSTRACTED [facility] Provider HEALTH MAINTENANCE Final Result * Hepatitis C Screening (06/25/2019) [facility] Hepatitis C Screening ABSTRACTED [facility] Provider HEALTH MAINTENANCE Final Result from Last 3 Months or Most Recently Relevant to Health Maintenance Insurance [facility] Care Teams Water Resource Specialist Relationship Specialty Start Date End Date Jodi Mooney MD [address] [place] [id number] PCP - General 08/30/22
== END 2024-07-10 15:01 | disposition home or self-care (01) ==
PROVIDERS: PCP Internal Medicine; Visit Provider Anesthesiology
DX: M79.7 Fibromyalgia (principal); G89.4 Chronic pain syndrome; M53.3 Sacrococcygeal disorders, not elsewhere classified; M46.1 Sacroiliitis, not elsewhere classified; G89.29 Other chronic pain
CPT/HCPCS: 99213

== ENCOUNTER → 2024-07-10 14:28 | Outpatient (BNVA) | payer OTHER, SELFPAY | PROVIDERS: PCP Internal Medicine; Visit Provider Anesthesiology | DX: M79.7 Fibromyalgia (principal); M53.3 Sacrococcygeal disorders, not elsewhere classified; M46.1 Sacroiliitis, not elsewhere classified; G89.29 Other chronic pain | CPT/HCPCS: 99212 ==

== ENCOUNTER 2024-09-17 06:23 | Outpatient (REF) | payer OTHER, SELFPAY ==
--- OUTSIDE RECORDS SUMMARY | 2024-09-17 06:25 | XMS_ITS | Encounter Summary ---
Author Organization [facility] Address [address] [place] [address] Care Team Providers Care Carbon Furnace Operator Name Role Phone Jodi Mooney MD Primary Care Provider [phone] Reason for Referral * Consultation (Routine) - Denied Specialty Diagnoses / Procedures Referred By Kya phillips Referred To Contact Gastroenterology Diagnoses Screen for colon cancer Billie Polk PA [address] [place] [address] Phone: tel: fax: Gastroenterology [facility] 175 [facility] [address] [address] Phone: tel: fax: Referral ID Status Reason Start Date Expiration Date V isits Requested Visits Authorized [id number] Denied Specialty Services Required 09/12/2024 09/12/2025 1 0 Reason for Visit * Reason Comments Referral Encounter Details Date Type Department Care Team ([facility] st Contact Info) Description 09/12/2024 12:45 PM EDT Office Visit Adult Medicine [address] [phone] Billie Polk PA [address] [place] [address] Fibromyalgia (Primary Dx); Screen for colon cancer Social History Tobacco Use Types Packs/Day Years Used Date Smoking Tobacco: Former Cigarettes Q uit: 05/08/1999 Smokeless Tobacco: Never Alcohol Use Standard Drinks/Week Comments No 0 (1 standard drink = 0.6 oz pur e alcohol) Sex and Gender Information Value Date Recorded Sex Assigned at Male 04/24/2024 10:22 AM EST Legal Sex Male 12:00 PM EST Gender Identity Not on file Sexual Orientation Not on file documented as of this encounter Last Filed Vital Signs Vital Sign Reading Time Taken Comments Blood Pressure 122/82 09/12/2024 12:58 PM EDT Pulse 76 09/12/2024 12:58 PM EDT Temperature 36.6 ??C (97.8 ??F) 09/12/2024 12:58 PM E DT Respiratory Rate 16 09/12/2024 12:58 PM EDT Oxygen Saturation 98% 09/12/2024 12:58 PM EDT Inhaled Oxygen Concentration - - Weight 100 kg (221 lb) 09/12/2024 12:58 PM EDT Height 175.3 cm (5' 9 ) 09/12/2024 12:58 PM EDT Body Mass Index 32.64 09/12/2024 12:58 PM EDT documented in this encounter Progress Notes * ALLEN Rodriguez - 09/12/2024 12:45 PM EDT CHIEF COMPLAINT: Referral IDENTIFIER: Garret WILKS is a 48 y.o. old male. HPI: 48-year-old Syriac-speaking male presents requesting referral. Exam is conducted with the assistance of Close steam boiler fireman #[id number]. Patient states he needs a referral to neurology and tells him hispsychologist recommended it but he does not know why. Reviewed with patient, he had made this request previously and was advised that needed information from the psychologist in order to review and consider referral needed. Patient cannot explain why a referral is indicated. Does report continues to have pain but does have fibromyalgia, per review of note from Dr. Walker ([facility]), patient's pain is most likely fibromyalgia and he is considering starting Savella/milnacipran abrams ariana patient is on SSRI. Dr. Walker is looking to speak with his psychiatrist Russ Fagan and, per note, will see patient back after that conversation has occurred. Patient also tells me he noticed on his MyChart that he is due for colon cancer screening and states he has never had a colonoscopy. ROS: GENERAL: No malaise, significant weight loss or fever. RESPIRATORY: Denies shortness of breath. CARDIOVASCULAR: Denies chest pain, palpitations. MUSCULOSKELETAL: Reports chronic pain. PAST MEDICAL HISTORY: Patient Active Problem List Diagnosis Date Noted Sacroiliitis, not elsewhere classified (CMS/[facility] V24) 05/17/2024 Class 1 obesity 02/09/2024 Chronic midline low back pain with bilateral sciatica 02/09/2024 Cervical spondylosis with radiculopathy 02/09/2024 Dupuytren's disease 08/31/2022 Tendinitis of both wrists 08/31/2022 Polyarthralgia 08/31/2022 Ganglion of left wrist 08/31/2022 Bilateral hand pain 08/02/2022 Chronic right shoulder pain 08/02/2022 Marijuana smoker, episodic 07/13/2021 Chondromalacia of both patellae 07/02/2020 Hypertriglyceridemia 06/26/2019 Elevated glucose 06/26/2019 Varicose veins with pain 02/06/2019 Lumbar spondylosis 11/30/2017 Degenerative disc disease, lumbar 11/30/2017 Anxiety and depression 09/27/2017 Fibromyalgia 09/21/2017 Fatty liver 07/19/2017 Anxiety 05/24/2017 Varicose veins of both lower extremities 05/24/2017 Past Surgical History: Procedure Laterality Date LUMBAR LAMINECTOMY 03/26/2018 PROCEDURE: HISTORICAL LUMB LAMINECTOMY MULTIPLE TOOTH EXTRACTIONS PROCEDURE: HISTORICAL DENTAL EXTRACTION OTHER SURGICAL HISTORY PROCEDURE: ---- OTHER ----; COMMENT: ganglion left wrist OTHER SURGICAL HISTORY Right PROCEDURE: ---- OTHER ----; COMMENT: partial amputation r 5th finger SHOULDER SURGERY Right PROCEDURE: HISTORICAL SHOULDER SURGERY TONSILLECTOMY PROCEDURE: HISTORICAL TONSILLECTOMY SOCIAL HISTORY: Social History Tobacco Use Smoking status: Former Current packs/day: 0.00 Types: Cigarettes Quit date: 05/08/1999 Years since quittin.3 Smokeless tobacco: Never Substance Use Topics Alcohol use: No FAMILY HISTORY: Family History Problem Relation Name Age of Onset Other (Other: Other) Mother varicose veins, hypertension Diabetes Father 86.00 hypertension, asthma, back trouble Family Status Relation Name Status Mother Alive Father No partnership data on file MEDICATIONS DISCONTINUED/REORDERED: There are no discontinued medications. ACTIVE MEDICATIONS: Outpatient Medications Marked as Taking for the 09/12/24 encounter (Office Visit) with ALLEN Rodriguez Medication Sig Dispense Refill gabapentin (NEURONTIN) 800 mg tablet Take 1 tablet (800 mg total) by mouth. sertraline (ZOLOFT) 100 mg tablet TAKE 1 TABLET BY MOUTH EVERY DAY AFTER 50MG TABLETS ARE FINISHED sertraline (ZOLOFT) 50 mg tablet PLEASE SEE ATTACHED FOR DETAILED DIRECTIONS ALLERGIES: Allergies Allergen Reactions Aspirin Swelling Naproxen Sodium Swelling Tolerated advil PHYSICAL EXAM: Visit Vitals BP 122/82 Pulse 76 Temp 36.6 ??C (97.8 ??F) (Temporal) Resp 16 Ht 1.753 m (69 ) Wt 100 kg (221 lb) SpO2 98% BMI 32.64 kg/m?? Smoking Status Former BSA 2.15 m?? APPEARANCE: Alert and in no acute distress EYES: PERRL, conjunctiva and sclera normal. HEART: RRR LUNG: Pulmonary effort normal NEURO: Awake, alert and oriented x 3 LABS: Lab Results Component Value Date WBC 5.9 09/12/2024 HGB 14.5 09/12/2024 HCT 43.2 09/12/2024 MCV 92.7 09/12/2024 No results found for: NA , K , CO2 , CL , BUN , GLU , ALB , ALKPHOS , TP Lab Results Component Value Date CHOL 188 07/15/2021 LDL 97 07/15/2021 HDL 41 07/15/2021 TRIG 253 (A) 07/15/2021 IMAGING: none IMPRESSION: 1. Fibromyalgia 2. Screen for colon cancer PLAN: 48-year-old male with fibromyalgia. Patient follows with [facility] for this. Today requesting a referral to neurology stating his psychologist recommended it however, is uncertain as towhy but alludes to because of his pain. Discussed with patient, we need to obtain records from his psychologist to understand what her concern is, advised to sign release of records so that can be obtained. Continue following with pain management as scheduled. Patient referred to GI for routine screening colonoscopy. Patient advised to schedule physical exam with PCP. Patient instructed to return if symptoms worsen or do not improve; patient acknowledges understandsand agrees with plan Medication and lab orders: Orders Placed This Encounter Procedures Ambulatory referral to Gastroenterology Other orders: AMB REFERRAL TO GASTROENTEROLOGY documented in this encounter Plan of Treatment Upcoming Encounters Date Type Department Care Team (Late st Contact Info) Description 12/16/2024 1:15 PM EDT Office Visit Adult Medicine [facility] [address] [place] [phone] Billie Polk PA [address] [place] [address] Scheduled Referrals Name Type Priority Associated Diagnoses Order Schedule Ambulatory referral to Gastroenterology Outpatient Referral Routine Screen for colon cancer 1 Occurrences starting 09/12/2024 until 09/12/2025 documented as of this encounter Goals Goal Patient Goal Type Associated Problems Recent Progress Patient-Stated? Author No pain General No Chester Araiza PT shoulder and neck goals: STG 8 visits from shoulder/neck eval General No Chester Araiza, PT Note: Pt will improve C rotation [...] LTG 14 visits from neck/shoulder eval General No Chester Araiza PT Note: Pt will wake <3 x/wk due to shoulder and neck pain Pt will have no limitations in toileting due to shoulder pain Pt will require no assistance in dressing as it relates to shoulder and neck Sx. Pt will be able to flex neck and use phone x 30 min documented as of this encounter Visit Diagnoses Diagnosis Fibromyalgia- Primary Unspecified myalgia and myositis Screen for colon cancer Special screening for malignant neoplasms, colon documented in this encounter Care Teams Carbon Furnace Operator Relationship Specialty Start Date End Date Jodi Mooney MD [address] [place] [address] PCP - General 08/30/22 documented as of this encounter
--- OUTSIDE RECORDS SUMMARY | 2024-09-17 06:25 | XMS_ITS | Encounter Summary ---
Author Organization [facility] Address [address] [place] [address] Care Team Providers Care Magistrate Judge Name Role Phone Pam Feng MD Unavailable [phone] Gail Pagan PA-C Unavailable Dustin Palacios PA-C Unavailable Jorge Cheng Primary Care Provider Jodi Mooney MD Primary Care Provider [phone] Reason for Visit * Reason Onset Date Comments REFERRAL 01/26/2022 Encounter Details Date Type Department Care Team Description 01/26/2022 Telephone Adult Medicine [address] [phone] Jorge Cheng [address] [place] [address] [phone] REFERRAL Social History Tobacco Use Types Packs/Day Years Used Date Smoking Tobacco: Former Cigarettes Q uit: 05/08/1999 Smokeless Tobacco: Never Alcohol Use Standard Drinks/Week Comments No 0 (1 standard drink = 0.6 oz pur e alcohol) Sex Assigned at Date Recorded Not on file Job Start Date Occupation Industry Not on file Not on file Not on file COVID-19 Exposure Response Date Recorded In the last 10 days, have yo u been in contact with someone who was confirmed or suspected to have Coronavirus/COVID-19? No / Unsure 01/18/2022 9:25 AM EDT documented as of this encounter Miscellaneous Notes * Telephone Encounter - Jasmin Pollard - 02/24/2022 1:46 PM EDT Pt called again in regards to update on referral, referred pt to neuro surgery back on 01/18 with urgent. Pt is very upset and will like a call back. * Telephone Encounter - Harleen Malloy - 02/10/2022 12:10 PM EDT Spoke to Faiza in referrals She had computer issues, but will call patient with status of referral * Telephone Encounter - Travis Ramirez - 02/01/2022 3:20 PM EDT Patient calling back * Telephone Encounter - Karin Almanza - 01/26/2022 3:27 PM EDT I will request a referral to neurosurgery. Dr. Radha Leavitt [facility] Neurosurgery Reason for referral:Worsening low back pain, weakness in legs, history of lumbar laminectomy. Mild disc bulging Priority: Routine - schedule for next available appointment; Priority - visit within 4-6 weeks; Urgent - visit within a week; Emergency - visit today or tomorrow. Is this related to Not third-constitution party related Patient is calling today for the status of this referral with the help of a magnetic healer on the line explained they are working them as quickly as possible. Please call patient once completed. documented in this encounter Plan of Treatment Not on file documented as of this encounter Visit Diagnoses Not on filedocumented in this encounter Care Teams Magistrate Judge Relationship Specialty Start Date End Date Jorge Cheng [address] [place] [address] PCP - General Internal Medicine 01/17/22 08/29/22 Jodi Mooney MD [address] [place] [address] PCP - General Internal Medicine 08/30/22 Pam Feng MD 175 [facility] [address] [place] [address] Surgeon Neurosurgery 10/12/21 Gail Pagan PA-C 175 [facility] [address] [place] [address] Specialist Neurosurgery 10/12/21 Dustin Palacios PA-C 175 [facility] [address] [place] [address] Specialist Neurosurgery 10/12/21 documented as of this encounter
--- OUTSIDE RECORDS SUMMARY | 2024-09-17 06:25 | XMS_ITS | Encounter Summary ---
Author Organization [facility] Address [address] [place] [address] Care Team Providers Care Market Manager Name Role Phone Herrera Tucker MD Primary Care Provider Hollis Garcia MD Primary Care Provider [phone] Bertin Castellon PA-C Primary Care Provider [phone] Pam Feng MD Unavailable [phone] Gail Pagan PA-C Unavailable [phone] Dustin Palacios PA-C Unavailable [phone] Jorge Cheng Primary Care Provider [phone] Jodi Mooney MD Primary Care Provider [phone] Encounter Details Date Type Department Care Team Description 02/15/2019 Release of Information Medical Records [address] [place] [id number] Abstract, Provider Social History Tobacco Use Types Packs/Day Years Used Date Smoking Tobacco: Former Cigarettes Q uit: 05/08/1999 Smokeless Tobacco: Never Alcohol Use Standard Drinks/Week Comments No 0 (1 standard drink = 0.6 oz pur e alcohol) Sex Assigned at Date Recorded Not on file Job Start Date Occupation Industry Not on file Not on file Not on file documented as of this encounter Plan of Treatment Not on file documented as of this encounter Visit Diagnoses Not on filedocumented in this encounter Care Teams Market Manager Relationship Specialty Start Date End Date Herrera Tucker MD [address] [place] [address] PCP - General Internal Medicine 12/20/18 06/30/19 Hollis Garcia MD [address] [place] [address] PCP - General Internal Medicine 07/01/19 05/17/20 Bertin Castellon PA-C [address] [place] [address] PCP - General Internal Medicine 05/18/20 01/16/22 Jorge Cheng [address] [place] [address] [phone] PCP - General Internal Medicine 01/17/22 08/29/22 Jodi Mooney MD [address] [place] [address] PCP - General Internal Medicine 08/30/22 Pam Feng MD [address] [place] [address] Surgeon Neurosurgery 10/12/21 Gail Pagan PA-C [address] [place] [address] Specialist Neurosurgery 10/12/21 Dustin Palacios PA-C [address] [address] Specialist Neurosurgery 10/12/21 documented as of this encounter
--- OUTSIDE RECORDS SUMMARY | 2024-09-17 06:25 | XMS_ITS | Encounter Summary ---
Author Organization [facility] Address [address] [place] [address] Care Team Providers Care Continuous Improvement Coach Name Role Phone Artie Damon MD Primary Care Provider Un available Herrera Tucker MD Primary Care Provider [phone] Hollis Garcia MD Primary Care Provider Herrera Tucker MD Primary Care Provider [phone] Bertin Castellon PA-C Primary Care Provider [phone] Pam Feng MD Unavailable [phone] Gail Pagan PA-C Unavailable Dustin Palacios PA-C Unavailable Jorge Cheng Primary Care Provider Jodi Mooney MD Primary Care Provider Encounter Details Date Type Department Care Team Description 02/20/2018 Pacs Administrator Report Medical Records [address] [place] [address] Pam Feng MD [address] [place] [address] [address] [place] [address] Social History Tobacco Use Types Packs/Day Years Used Date Smoking Tobacco: Former Cigarettes Q uit: 05/08/1999 Smokeless Tobacco: Never Sex Assigned at Date Recorded Not on file Job Start Date Occupation Industry Not on file Not on file Not on file documented as of this encounter Plan of Treatment Not on file documented as of this encounter Visit Diagnoses Not on filedocumented in this encounter Care Teams Continuous Improvement Coach Relationship Specialty Start Date End Date Artie Damon MD PCP - General Internal Medicine 05/12/17 Herrera Tucker MD [address] [place] [address] PCP - General Internal Medicine 12/20/18 06/30/19 Hollis Garcia MD [address] [place] [address] PCP - General Internal Medicine 07/01/19 05/17/20 Herrera Tucker MD [address] [place] [address] PCP - General 07/31/18 12/19/18 Bertin Castellon PA-C [address] [place] [address] PCP - General Internal Medicine 05/18/20 01/16/22 Jorge Cheng [address] [place] [address] PCP - General Internal Medicine 01/17/22 08/29/22 Jodi Mooney MD [address] [place] [address] PCP - General Internal Medicine 08/30/22 Pam Feng MD [address] [address] Surgeon Neurosurgery 10/12/21 Gail Pagan PA-C [address] [address] Specialist Neurosurgery 10/12/21 Dustin Palacios PA-C [address] [address] Specialist Neurosurgery 10/12/21 documented as of this encounter
--- OUTSIDE RECORDS SUMMARY | 2024-09-17 06:25 | XMS_ITS | Encounter Summary ---
Author Organization [facility] Address [address] [place] [address] Care Team Providers Care Senior Sales Associate Name Role Phone Artie Damon MD Primary Care Provider Un available Herrera Tucker MD Primary Care Provider [phone] Hollis Garcia MD Primary Care Provider [phone] Herrera Tucker MD Primary Care Provider Bertin Castellon PA-C Primary Care Provider [phone] Pam Feng MD Unavailable [phone] Gial Pagan PA-C Unavailable Dustin Palacios PA-C Unavailable Jorge Cheng Primary Care Provider [phone] Jodi Mooney MD Primary Care Provider Reason for Visit * Reason Onset Date Comments [facility] Call 06/05/2018 [facility] s Encounter Details Date Type Department Care Team Description 06/05/2018 Telephone Adult Medicine [address] [phone] Artie Damon MD [facility] Call ([facility] ) Social History Tobacco Use Types Packs/Day Years Used Date Smoking Tobacco: Former Cigarettes Q uit: 05/08/1999 Smokeless Tobacco: Never Alcohol Use Standard Drinks/Week Comments No 0 (1 standard drink = 0.6 oz pur e alcohol) Sex Assigned at Date Recorded Not on file Job Start Date Occupation Industry Not on file Not on file Not on file documented as of this encounter Miscellaneous Notes * Telephone Encounter - Jessica Stanley R.N. - 06/06/2018 10:39 AM EST Pt is asking for the orders which were signed to be faxed to her * Telephone Encounter - Jessica Stanley R.N. - 06/06/2018 9:56 AM EST I left a message for waqar to return my call. * Telephone Encounter - Azalia Lambert - 06/05/2018 3:49 PM EST Waqar is returning your call. [phone] * Telephone Encounter - Jessica Stanley R.N. - 06/05/2018 3:12 PM EST I left a message for waqar to return my call. * Telephone Encounter - Bonnie Vaughn - 06/05/2018 1:20 PM EST [facility] CALL Which A office is calling? [facility] Full name of caller: Waqar The caller is A Physical Therapist Is the caller at the patients home?:YES Reason for call: Please see encounter from 05/28/18, can orders be re-faxed over to Waqar at [phone]. Waqar also states patient has been having a lot of back pain. *Pt speaks Guinean* Does caller need an urgent call back? YES Was CONTACT Telephone # obtained above?: YES Fax #: N/A documented in this encounter Plan of Treatment Not on file documented as of this encounter Visit Diagnoses Not on filedocumented in this encounter Care Teams Senior Sales Associate Relationship Specialty Start Date End Date Artie Damon MD PCP - General Internal Medicine 05/12/17 Herrera Tucker MD [address] [place] [address] PCP - General Internal Medicine 12/20/18 06/30/19 Hollis Garcia MD [address] [place] [address] PCP - General Internal Medicine 07/01/19 05/17/20 Herrera Tucker MD [address] [place] [address] PCP - General 07/31/18 12/19/18 Bertin Castellon PA-C [address] [place] [address] PCP - General Internal Medicine 05/18/20 01/16/22 Jorge Cheng [address] [place] [address] PCP - General Internal Medicine 01/17/22 08/29/22 Jodi Mooney MD [address] [place] [address] PCP - General Internal Medicine 08/30/22 Pam Feng MD [address] [address] Surgeon Neurosurgery 10/12/21 Gail Pagan PA-C [address] [address] Specialist Neurosurgery 10/12/21 Dustin Palacios PA-C [address] [address] Specialist Neurosurgery 10/12/21 documented as of this encounter
--- OUTSIDE RECORDS SUMMARY | 2024-09-17 06:25 | XMS_ITS | Encounter Summary ---
Author Organization [facility] Address [address] [place] [address] Care Team Providers Care Senior Games Technician Name Role Phone Artie Damon MD Primary Care Provider Un available Herrera Tucker MD Primary Care Provider Hollis Garcia MD Primary Care Provider [phone] Herrera Tucker MD Primary Care Provider [phone] Bertin Castellon PA-C Primary Care Provider [phone] Pam Feng MD Unavailable [phone] Gail Pagan PA-C Unavailable Dustin Palacios PA-C Unavailable [phone] Jorge Cheng Primary Care Provider Jodi Mooney MD Primary Care Provider [phone] Reason for Visit * Reason Onset Date Comments Faxed Order 06/14/2018 Encounter Details Date Type Department Care Team Description 06/14/2018 Telephone Adult [address] [address] Artie Damon MD Faxed Order Social History Tobacco Use Types Packs/Day Years [...] encounter Miscellaneous Notes * Telephone Encounter - Amelia Rodriguez - 06/14/2018 11:08 AM EST Faxed order received from Robbie Macias please sign and fax to [phone] documented in this encounter Plan of Treatment Not on file documented as of this encounter Visit Diagnoses Not on filedocumented in this encounter Care Teams Senior Games Technician Relationship Specialty Start Date End Date Artie Damon MD PCP - General Internal Medicine 05/12/17 Herrera Tucker MD [address] [place] [address] PCP - General Internal Medicine 12/20/18 06/30/19 Hollis Garcia MD [address] [place] [address] PCP - General Internal Medicine 07/01/19 05/17/20 Herrera Tucker MD [address] [place] [address] PCP - General 07/31/18 12/19/18 Bertin Castellon PA-C [address] [place] [address] PCP - General Internal Medicine 05/18/20 01/16/22 Jorge Cheng [address] [place] [address] PCP - General Internal Medicine 01/17/22 08/29/22 Jodi Mooney MD [address] [place] [address] PCP - General Internal Medicine 08/30/22 Pam Feng MD [address] [place] [address] Surgeon Neurosurgery 10/12/21 Gail Pagan PA-C [address] [address] Specialist Neurosurgery 10/12/21 Dustin Palacios PA-C [address] [address] Specialist Neurosurgery 10/12/21 documented as of this encounter
--- OUTSIDE RECORDS SUMMARY | 2024-09-17 06:25 | XMS_ITS | Encounter Summary ---
[facility] Organization [facility] Address [address] [place] [address] Care Team Providers Care Factory Lay Out Engineer Name Role Phone Artie Damon MD Primary Care Provider Un available Herrera Tucker MD Primary Care Provider [phone] Hollis Garcia MD Primary Care Provider Herrera Tucker MD Primary Care Provider Bertin Castellon PA-C Primary Care Provider [phone] Pam Feng MD Unavailable [phone] Gail Pagan PA-C Unavailable Dustin Palacios PA-C Unavailable Jorge Cheng Primary Care Provider Jodi Mooney MD Primary Care Provider [phone] Encounter Details Date Type Department Care Team Description 03/07/2018 Release of Information Medical Records [address] [place] [address] Abstract, Provider Social History Tobacco Use Types [...] on filedocumented in this encounter Care Teams Factory Lay Out Engineer Relationship Specialty Start Date End Date Artie Damon MD PCP - General Internal Medicine 05/12/17 Herrera Tucker MD [address] [place] [address] PCP - General Internal Medicine 12/20/18 06/30/19 Hollis Garcia MD [address] [place] [address] 25063 PCP - General Internal Medicine 07/01/19 05/17/20 Herrera Tucker MD [address] [place] [address] PCP - General 07/31/18 12/19/18 Bertin Castellon PA-C [address] [place] [address] PCP - General Internal Medicine 05/18/20 01/16/22 Jorge Cheng [address] [place] [address] PCP - General Internal Medicine 01/17/22 08/29/22 Jodi Mooney MD [address] [place] [address] 28086 PCP - General Internal Medicine 08/30/22 Pam Feng MD [address] [address] Surgeon Neurosurgery 10/12/21 Gail Pagan PA-C [address] [address] Specialist Neurosurgery 10/12/21 Dustin Palacios PA-C [address] [address] Specialist Neurosurgery 10/12/21 documented as of this encounter
--- OUTSIDE RECORDS SUMMARY | 2024-09-17 06:25 | XMS_ITS | Encounter Summary ---
Author Organization [facility] Address [address] [place] [address] Care Team Providers Care Dynamics Ax Technical Architect Name Role Phone Herrera Tucker MD Primary Care Provider Hollis Garcia MD Primary Care Provider [phone] Bertin Castellon PA-C Primary Care Provider [phone] Pam Feng MD Unavailable [phone] Gail Pagan PA-C Unavailable [phone] Dustin Palacios PA-C Unavailable [phone] Jorge Cheng Primary Care Provider [phone] Jodi Mooney MD Primary Care Provider [phone] Encounter Details Date Type Department Care Team Description 02/11/2019 Orders Only Medical Records [address] [place] [address] Markus Guzmán MD Social History Tobacco Use Types Packs/Day Years [...] on file documented as of this encounter Procedures Procedure Name Priority Date/Time Associated Diagnosis Comments OUTSIDE VASCULAR STUDY Routine 02/08/2019 documented in this encounter Results * OUTSIDE VASCULAR STUDY (02/08/2019) Markus Guzmán MD CARDIOLOGY documented in this encounter Visit Diagnoses Not on filedocumented in this encounter Care Teams Dynamics Ax Technical Architect Relationship Specialty Start Date End Date Herrera Tucker MD [address] [place] [address] PCP - General Internal Medicine 12/20/18 06/30/19 Hollis Garcia MD [address] [place] [address] PCP - General Internal Medicine 07/01/19 05/17/20 Bertin Castellon PA-C [address] [place] [address] PCP - General Internal Medicine 05/18/20 01/16/22 Jorge Cheng [address] [place] [address] PCP - General Internal Medicine 01/17/22 08/29/22 Jodi Mooney MD [address] [place] [address] 42665 PCP - General Internal Medicine 08/30/22 Pam Feng MD [address] [address] Surgeon Neurosurgery 10/12/21 Gail Pagan PA-C [address] [address] Specialist Neurosurgery 10/12/21 Dustin Palacios PA-C [address] [address] Specialist Neurosurgery 10/12/21 documented as of this encounter
--- OUTSIDE RECORDS SUMMARY | 2024-09-17 06:25 | XMS_ITS | Encounter Summary ---
[facility] Organization [facility] Address [address] [place] [address] Care Team Providers Care Change Control Manager Name Role Phone Herrera Tucker MD Primary Care Provider Hollis Garcia MD Primary Care Provider Herrera Tucker MD Primary Care Provider [phone] Bertin Castellon PA-C Primary Care Provider [phone] Pam Feng MD Unavailable [phone] Gail Pagan PA-C Unavailable Dustin Palacios PA-C Unavailable Jorge Cheng Primary Care Provider [phone] Jodi Mooney MD Primary Care Provider [phone] Encounter Details Date Type Department Care Team Description 08/24/2018 Ingredient Mixer Report Medical Records [address] [place] [address] Pam Feng MD [address] [place] [address] [address] [place], [place] [id number] Social History Tobacco Use Types Packs/Day Years [...] on filedocumented in this encounter Care Teams Change Control Manager Relationship Specialty Start Date End Date Herrera Tucker MD [address] [place] [address] PCP - General Internal Medicine 12/20/18 06/30/19 Hollis Garcia MD [address] [place] [address] PCP - General Internal Medicine 07/01/19 05/17/20 Herrera Tucker MD [address] [place] [address]67[address] PCP - General 07/31/18 12/19/18 Bertin Castellon PA-C [address] [place] [address] PCP - General Internal Medicine 05/18/20 01/16/22 Jorge Cheng [address] [place] [address] PCP - General Internal Medicine 01/17/22 08/29/22 Jodi Mooney MD [address] [place] [address] 19993 PCP - General Internal Medicine 08/30/22 Pam Feng MD [address] [address] Surgeon Neurosurgery 10/12/21 Gail aPgan PA-C [address] [address] Specialist Neurosurgery 10/12/21 Dustin Palacios PA-C [address] [address] Specialist Neurosurgery 10/12/21 documented as of this encounter
--- OUTSIDE RECORDS SUMMARY | 2024-09-17 06:25 | XMS_ITS | Encounter Summary ---
Author Organization [facility] Address [address] [place] [address] Care Team Providers Care Tile Fitter Name Role Phone Pam Fegn MD Unavailable [phone] Gail Pagan PA-C Unavailable [phone] Dustin Palacios PA-C Unavailable [phone] Jodi Mooney MD Primary Care Provider [phone] Encounter Details Date Type Department Care Team Description 12/08/2022 Telephone Adult Medicine [address] [address] Jodi Mooney MD [address] [place] [address] [phone] Social History Tobacco Use Types Packs/Day Years [...] on filedocumented in this encounter Care Teams Tile Fitter Relationship Specialty Start Date End Date Jodi Mooney MD [address] [place] [address] 1057320 PCP - General Internal Medicine 08/30/22 Pam Feng MD 175 [facility] [address] [place] [address] [phone] Surgeon Neurosurgery 10/12/21 Gail Pagan PA-C [address] [address] Specialist Neurosurgery 10/12/21 Dustin Palacios PA-C 175 [facility] [address] [place] [address] Specialist Neurosurgery 10/12/21 documented as of this encounter
--- OUTSIDE RECORDS SUMMARY | 2024-09-17 06:25 | XMS_ITS | Encounter Summary ---
Author Organization [facility] Address [address] [place] [address] Care Team Providers Care Lead Business Systems Analyst Name Role Phone Artie Damon MD Primary Care Provider Un available Herrera Tucker MD Primary Care Provider [phone] Hollis Garcia MD Primary Care Provider [phone] Herrera Tucker MD Primary Care Provider Bertin Castellon PA-C Primary Care Provider [phone] Pam Feng MD Unavailable [phone] Gail Pagan PA-C Unavailable Dustin Palacios PA-C Unavailable [phone] Jorge Cheng Primary Care Provider Jodi Mooney MD Primary Care Provider Reason for Visit * Reason Onset Date Comments Faxed Order 06/27/2018 Encounter Details Date Type Department Care Team Description 06/27/2018 Telephone Adult [address] [address] Artie Damon MD Faxed Order [...] encounter Miscellaneous Notes * Telephone Encounter - Lucrecia Peres - 06/27/2018 3:13 PM EST Robbie HENDERSON would like Dr. Ley's signature for supplemental orders documented in this encounter Plan of Treatment Not on file documented as of this encounter Visit Diagnoses Not on filedocumented in this encounter Care Teams Lead Business Systems Analyst Relationship Specialty Start Date End Date Artie Damon MD PCP - General Internal Medicine 05/12/17 Herrera Tucker MD [address] [place] [address] PCP - General Internal Medicine 12/20/18 06/30/19 Hollis Garcia MD [address] [place] [address] PCP - General Internal Medicine 07/01/19 05/17/20 Herrera Tucker MD [address] [place] [address] PCP - General 07/31/18 12/19/18 Bertin Castellon PA-C [address] [place] [address] PCP - General Internal Medicine 05/18/20 01/16/22 Jorge Cheng [address] [place] [address] PCP - General Internal Medicine 01/17/22 08/29/22 Jodi Mooney MD [address] [place] [address] PCP - General Internal Medicine 08/30/22 Pam Feng MD [address] [place] [address] Surgeon Neurosurgery 10/12/21 Gail Pagan PA-C [address] [phone] Specialist Neurosurgery 10/12/21 Dustin Palacios PA-C [address] [address] Specialist Neurosurgery 10/12/21 documented as of this encounter
--- OUTSIDE RECORDS SUMMARY | 2024-09-17 06:25 | XMS_ITS | Encounter Summary ---
[facility] Organization [facility] Address [address] [place] [address] Care Team Providers Care Store Stock Associate Name Role Phone Herrera Tucker MD Primary Care Provider Hollis Garcia MD Primary Care Provider Herrera Tucker MD Primary Care Provider [phone] Bertin Castellon PA-C Primary Care Provider Pam Feng MD Unavailable [phone] Gail Pagan PA-C Unavailable Dustin Palacios PA-C Unavailable [phone] Jorge Cheng Primary Care Provider [phone] Jodi Mooney MD Primary Care Provider [phone] Encounter Details Date Type Department Care Team Description 09/17/2018 Jordan Man Report Medical Records [address] [place] [address] Bryce Hylton MD Social History Tobacco Use Types Packs/Day [...] on filedocumented in this encounter Care Teams Store Stock Associate Relationship Specialty Start Date End Date Herrera Tucker MD [address] [place] [address] PCP - General Internal Medicine 12/20/18 06/30/19 Hollis Garcia MD [address] [place] [address] PCP - General Internal Medicine 07/01/19 05/17/20 Herrera Tucker MD [address] [place] [address] PCP - General 07/31/18 12/19/18 Bertin Castellon PA-C [address] [place] [address] PCP - General Internal Medicine 05/18/20 01/16/22 Jorge Cheng [address] [place] [address] PCP - General Internal Medicine 01/17/22 08/29/22 Jodi Mooney MD [address] [place] [address] PCP - General Internal Medicine 08/30/22 Pam Feng MD [address] [address] Surgeon Neurosurgery 10/12/21 Gail Pagan PA-C [address] [address] Specialist Neurosurgery 10/12/21 Dustin Palacios PA-C [address] [address] Specialist Neurosurgery 10/12/21 documented as of this encounter
--- OUTSIDE RECORDS SUMMARY | 2024-09-17 06:25 | XMS_ITS | Encounter Summary ---
[facility] Address [address] [place] [address] Care Team Providers Care Pricing Intern Name Role Phone Artie Damon MD Primary Care Provider Un available Herrera Tucker MD Primary Care Provider Hollis Garcia MD Primary Care Provider [phone] Herrera Tucker MD Primary Care Provider Bertin Castellon PA-C Primary Care Provider [phone] Pam Feng MD Unavailable [phone] Gail Pagan PA-C Unavailable Dustin Palacios PA-C Unavailable [phone] Jorge Cheng Primary Care Provider [phone] Jodi Mooney MD Primary Care Provider Reason for Visit * Reason Onset Date Comments VNA Call 05/23/2018 Encounter Details Date Type Department Care Team Description 05/23/2018 Telephone Adult [address] [address] Artie Damon MD VNA Call Social History Tobacco Use Types Packs/Day Years [...] Telephone Encounter - Jessica Stanley R.N. - 05/23/2018 11:16 AM EST I left a message for the patient to return my call. [phone] (home) [phone] (work) * Telephone Encounter - Sweta Dmitriy - 05/23/2018 8:49 AM EST [facility] CALL Which [facility] office is calling? [facility] Full name of caller: Lucero The caller is A Physical Therapist Is the caller at the patients home?: YES Reason for call: Patient is being discharged from home services. For 2 months pt has plateaued at home and it is recommended pt should transition to outpatient therapy, [facility]. Pt is having F/u Xrays tomorrow. Pain increased yesterday. Does caller need an urgent call back? NO Was CONTACT Telephone # obtained above?: YES Fax #: documented in this encounter Plan of Treatment Not on file documented as of this encounter Visit Diagnoses Not on filedocumented in this encounter Care Teams Pricing Intern Relationship Specialty Start Date End Date Artie Damon MD PCP - General Internal Medicine 05/12/17 Herrera Tucker MD [address] [place] [address] PCP - General Internal Medicine 12/20/18 06/30/19 Hollis Garcia MD [address] [place] [address] PCP - General Internal Medicine 07/01/19 05/17/20 Herrera Tucker MD [address] [place] [address] PCP - General 07/31/18 12/19/18 Bertin Castellon PA-C [address] [place] [address] PCP - General Internal Medicine 05/18/20 01/16/22 Jorge Cheng [address] [place] [address] PCP - General Internal Medicine 01/17/22 08/29/22 Jodi Mooney MD [address] [place] [address] PCP - General Internal Medicine 08/30/22 Pam Feng MD [address] [address] Surgeon Neurosurgery 10/12/21 Gail Pagan PA-C [address] [address] Specialist Neurosurgery 10/12/21 Dustin Palacios PA-C [address] [address] Specialist Neurosurgery 10/12/21 documented as of this encounter
--- OUTSIDE RECORDS SUMMARY | 2024-09-17 06:25 | XMS_ITS | Encounter Summary ---
Author Organization [facility] Address [address] [place] [address] Care Team Providers Care Supervisor Wash House Name Role Phone Pam Feng MD Unavailable [phone] Gail Pagan PA-C Unavailable Dustin Palacios PA-C Unavailable [phone] Jorge Cheng Primary Care Provider [phone] Jodi Mooney MD Primary Care Provider [phone] Encounter Details Date Type Department Care Team Description 08/05/2022 [facility] 175 [facility] [address] [place] [phone] Thalia Gutiérrez PA-C 175 [facility] [address] [place] [address] Social History Tobacco Use Types Packs/Day Years [...] suspected to have Coronavirus/COVID-19? No / Unsure 08/02/2022 1:28 PM EDT documented as of this encounter Plan of Treatment Not on file documented as of this encounter Visit Diagnoses Not on filedocumented in this encounter Care Teams Supervisor Wash House Relationship Specialty Start Date End Date Jorge Cheng [address] [place] [address] PCP - General Internal Medicine 01/17/22 08/29/22 Jodi Mooney MD [address] [place] [address] PCP - General Internal Medicine 08/30/22 Pam Feng MD [address] [address] Surgeon Neurosurgery 10/12/21 Gail Pagan PA-C [address] [address] Specialist Neurosurgery 10/12/21 Dustin Palacios PA-C [address] [address] Specialist Neurosurgery 10/12/21 documented as of this encounter
--- OUTSIDE RECORDS SUMMARY | 2024-09-17 06:25 | XMS_ITS | Encounter Summary ---
[facility] Organization [facility] Address [address] [place] [address] Care Team Providers Care Beach Expert Name Role Phone Artie Damon MD Primary Care Provider Un available Herrera Tucker MD Primary Care Provider [phone] Hollis Garcia MD Primary Care Provider Herrera Tucker MD Primary Care Provider Bertin Castellon PA-C Primary Care Provider [phone] Pam Feng MD Unavailable [phone] Gail Pagan PA-C Unavailable Dustin Palacios PA-C Unavailable Jorge Cheng Primary Care Provider [phone] Jodi Mooney MD Primary Care Provider Encounter Details Date Type Department Care Team Description 09/28/2017 Transfer Records Medical Records [address] [place] [address] Abstract, Provider Social History Tobacco Use Types [...] on filedocumented in this encounter Care Teams Beach Expert Relationship Specialty Start Date End Date Artie Damon MD PCP - General Internal Medicine 05/12/17 Herrera Tucker MD [address] [place] [address] PCP - General Internal Medicine 12/20/18 06/30/19 Hollis Garcia MD [address] [place] [address] PCP - General Internal Medicine 07/01/19 05/17/20 Herrera Tucker MD [address] [place] [address] PCP - General 07/31/18 12/19/18 Bertin Castellon PA-C [address] [place] [address] PCP - General Internal Medicine 05/18/20 01/16/22 Jorge Cheng [address] [place] [address] PCP - General Internal Medicine 01/17/22 08/29/22 Jodi Mooney MD [address] [place] [address] PCP - General Internal Medicine 08/30/22 Pam Feng MD [address] [address] Surgeon Neurosurgery 10/12/21 Gail Pagan PA-C [address] [address] Specialist Neurosurgery 10/12/21 Dustin Palacios PA-C [address] [address] Specialist Neurosurgery 10/12/21 documented as of this encounter
--- OUTSIDE RECORDS SUMMARY | 2024-09-17 06:25 | XMS_ITS | Encounter Summary ---
Author Organization [facility] Address [address] [place] [address] Care Team Providers Care Director Blood Bank Name Role Phone Bertin Castellon PA-C Primary Care Provider [phone] Pam Feng MD Unavailable [phone] Gail Pagan PA-C Unavailable [phone] Dustin Palacios PA-C Unavailable [phone] Jorge Cheng Primary Care Provider Jodi Mooney MD Primary Care Provider Reason for Visit * Reason Onset Date Comments Farm Butcher Feedback 05/26/2021 Dr. Preet jason Encounter Details Date Type Department Care Team Description 05/26/2021 Telephone Adult Medicine [address] [phone] Bertin Castellon PA-C [address] [place] [address] [phone] Farm Butcher Feedback ( Dr. Preet Riggins ) Social History Tobacco Use Types Packs/Day [...] Exposure Response Date Recorded In the last month, have you been in contact with someone who was confirmed or suspected to have Coronavirus / COVID-19? No / Unsure 05/24/2021 2:35 PM EST documented as of this encounter Miscellaneous Notes * Telephone Encounter - Velia Atkinson - 05/26/2021 11:43 AM EST No insurance referral required per patient's insurance. * Telephone Encounter - Yola Baker - 05/26/2021 11:36 AM EST What insurance does the patient have today? [employer] Effective 02/05/09: [employer] will not retro referral requests over 90 days. If request is for this please instruct patient to call the 800# on their insurance card to appeal. Do not submit a request. Referrals cannot be processed if the insurance is not accurate. If the insurance listed above in red is NO BILLING INFORMATION FOUND FOR THIS ENCOUTNER The patients correct insurance must be obtained and registered in [facility] or their referral can not be processed. Is this a retro request? NO. If yes for what date of service do you need the retro referral? N/A Who is calling to request this referral? Patient If the caller is not the patient, what is their name? N/A Ask the patient WHO referred them to this specialty: Patient self referred FIRST and LAST NAME of SPECIALIST PATIENT is seeing: Dr. Preet Riggins What specialty is this? Rheumatology DIAGNOSIS Patient is being seen for (Not a body part or a procedure): Fibromyalgia Have you seen this SPECIALIST for this PROBLEM/DX before?NO If YES, when:n/a Have you checked REVIEW or the APPT DESK to see if this referral has already been done or has visits left? NO Is this visit:Initial Visit [facility] Phone # of Specialist:[phone] Fax #: (if applicable):n/a Does patient have an appointment scheduled?: YES Date of appointment- (including a retro-request): 06/01/21 Is this appointment related to: Not MVA, WC or Surgery related documented in this encounter Plan of Treatment Not on file documented as of this encounter Visit Diagnoses Not on filedocumented in this encounter Care Teams Director Blood Bank Relationship Specialty Start Date End Date Bertin Castellon PA-C [address] [place] [address] PCP - General Internal Medicine 05/18/20 01/16/22 Jorge Cheng [address] [place] [address] PCP - General Internal Medicine 01/17/22 08/29/22 Jodi Mooney MD [address] [place] [address] PCP - General Internal Medicine 08/30/22 Pam Feng MD [address] [address] Surgeon Neurosurgery 10/12/21 Gail Pagan PA-C [address] [address] Specialist Neurosurgery 10/12/21 Dustin Palacios PA-C [address] [address] Specialist Neurosurgery 10/12/21 documented as of this encounter
--- OUTSIDE RECORDS SUMMARY | 2024-09-17 06:25 | XMS_ITS | Encounter Summary ---
Author Organization [facility] Address [address] [place] [address] Care Team Providers Care Top Cager Name Role Phone Artie Damon MD Primary Care Provider Un available Herrera Tucker MD Primary Care Provider [phone] Hollis Garcia MD Primary Care Provider Herrera Tucker MD Primary Care Provider Bertin Castellon PA-C Primary Care Provider [phone] Pam Feng MD Unavailable [phone] Gail Pagan PA-C Unavailable Dustin Palacios PA-C Unavailable Jorge Cheng Primary Care Provider Jodi Mooney MD Primary Care Provider [phone] Encounter Details Date Type Department Care Team Description 08/25/2017 Cash Sales Audit Clerk Report Medical Records [address] [place] [address] Rehab., [place] Social History Tobacco Use Types Packs/Day Years [...] on filedocumented in this encounter Care Teams Top Cager Relationship Specialty Start Date End Date Artie Damon MD PCP - General Internal Medicine 05/12/17 Herrera Tucker MD [address] [place] [address] PCP - General Internal Medicine 12/20/18 06/30/19 Hollis Garcia MD [address] [place] [address] PCP - General Internal Medicine 07/01/19 05/17/20 Herrera Tucker MD [address] [place] [address] PCP - General 07/31/18 12/19/18 Bertin Castellon PA-C [address] [place] [address] PCP - General Internal Medicine 05/18/20 01/16/22 Jorge Cheng [address] [place] [address] PCP - General Internal Medicine 01/17/22 08/29/22 Jodi Mooney MD [address] [place] [address] PCP - General Internal Medicine 08/30/22 Pam Feng MD [address] [address] Surgeon Neurosurgery 10/12/21 Gail Pagan PA-C [address] [address] Specialist Neurosurgery 10/12/21 Dustin Palacios PA-C [address] [address] Specialist Neurosurgery 10/12/21 documented as of this encounter
--- OUTSIDE RECORDS SUMMARY | 2024-09-17 06:25 | XMS_ITS | Encounter Summary ---
Author Organization [facility]egan [facility] Address [address] [place] [address] Care Team Providers Care Plug Cutting Machine Operator Name Role Phone Artie Damon MD Primary Care Provider Un available Herrera Tucker MD Primary Care Provider [phone] Hollis Garcia MD Primary Care Provider Herrera Tucker MD Primary Care Provider Bertin Castellon PA-C Primary Care Provider [phone] Pam Feng MD Unavailable [phone] Gail Pagan PA-C Unavailable Dustin Palacios PA-C Unavailable Jorge Cheng Primary Care Provider Jodi Mooney MD Primary Care Provider Encounter Details Date Type Department Care Team Description 04/17/2018 Transfer Records Medical Records [address] [place] [address] Abstract, Provider Social History Tobacco Use Types [...] on filedocumented in this encounter Care Teams Plug Cutting Machine Operator Relationship Specialty Start Date End Date Artie Damon MD PCP - General Internal Medicine 05/12/17 Herrera Tucker MD [address] [place] [address] PCP - General Internal Medicine 12/20/18 06/30/19 Hollis Garcia MD [address] [place] [address] PCP - General Internal Medicine 07/01/19 05/17/20 Herrera Tucker MD [address] [place] [address] PCP - General 07/31/18 12/19/18 Bertin Castellon PA-C [address] [place] [address] PCP - General Internal Medicine 05/18/20 01/16/22 Jorge Cheng [address] [place] [address] PCP - General Internal Medicine 01/17/22 08/29/22 Jodi Mooney MD [address] [place] [address] PCP - General Internal Medicine 08/30/22 Pam Feng MD [address] [address] Surgeon Neurosurgery 10/12/21 Gail Pagan PA-C [address] [address] Specialist Neurosurgery 10/12/21 Dustin Palacios PA-C [address] [address] Specialist Neurosurgery 10/12/21 documented as of this encounter
--- OUTSIDE RECORDS SUMMARY | 2024-09-17 06:25 | XMS_ITS | Encounter Summary ---
Author Organization [facility] Address [address] [place] [address] Care Team Providers Care Chair Trimmer Name Role Phone Pam Feng MD Unavailable [phone] Gail Pagan PA-C Unavailable [phone] Dustin Palacios PA-C Unavailable Jodi Mooney MD Primary Care Provider [phone] Encounter Details Date Type Department Care Team Description 10/03/2023 SCAN [facility] Medical [facility] 175 [facility] [address] [place] [address] Thalia Gutiérrez PA-C 175 [facility] [address] [place], [place] [phone] Social History Tobacco Use Types Packs/Day Years [...] on filedocumented in this encounter Care Teams Chair Trimmer Relationship Specialty Start Date End Date Jodi Mooney MD [address] [place] [address] [phone] PCP - General Internal Medicine 08/30/22 Pam Feng MD [address] [phone] Surgeon Neurosurgery 10/12/21 Gail Pagan PA-C [address] [address] Specialist Neurosurgery 10/12/21 Dustin Palacios PA-C 175 [facility] [address] [place] [address] Specialist Neurosurgery 10/12/21 documented as of this encounter
--- OUTSIDE RECORDS SUMMARY | 2024-09-17 06:25 | XMS_ITS | Encounter Summary ---
Author Organization [facility] Address [address] [place] [address] Care Team Providers Care Post Anesthesia Room Nurse Name Role Phone Pam Feng MD Unavailable [phone] Gail Pagan PA-C Unavailable Dustin Palacios PA-C Unavailable Jodi Mooney MD Primary Care Provider [phone] Encounter Details Date Type Department Care Team Description 02/07/2024 SCAN [facility] Medical [facility] Neurosurgery [place] [address] [phone] Dustin Palacios PA-C [address] [phone] Social History Tobacco Use Types Packs/Day Years [...] on filedocumented in this encounter Care Teams Post Anesthesia Room Nurse Relationship Specialty Start Date End Date Jodi Mooney MD [address] [place] [address] [phone] PCP - General Internal Medicine 08/30/22 Pam Feng MD 175 [facility] [address] [place] [address] [phone] Surgeon Neurosurgery 10/12/21 aGil Pagan PA-C [address] [address] Specialist Neurosurgery 10/12/21 Dustin Palacios PA-C 175 [facility] [address] [place] [address] Specialist Neurosurgery 10/12/21 documented as of this encounter
--- OUTSIDE RECORDS SUMMARY | 2024-09-17 06:25 | XMS_ITS | Clinical Summary ---
Author Organization 175 [facility] Address [address] [place] [address] Phone Care Team Providers Care Route Sales Person Name Role Phone Jodi Mooney MD Primary Care Provider [phone] Allergies Active Allergy Reactions Criticality Noted Date [...] Date Diagnosed Date Sacroiliitis, not elsewhere classified (CMS/HCC V24) 05/17/2024 Assessment & Plan (05/17/2024 3:43 PM EST): [...] His MRI of the cervical spine from [facility] dated 04/25/2024. This did show multilevel cervical [...] Encounters Date Type Department Care Team Description 09/12/2024 12:45 PM EDT Office Visit Adult Medicine [address] [phone] Billie Polk PA Fibromyalgia (Primary Dx); Screen for colon cancer 09/04/2024 6:03 PM EDT - 09/04/2024 11:59 PM EDT Hospital Encounter [facility] MRI [address] [place] [address] Discharge Disposition: Home or Self Care 08/12/2024 9:15 AM EDT Office Visit Orthopedic Surgery [facility] 175 [facility] [address] [place] [address] Francisca Walton MD Bilateral hand pain (Primary Dx) 08/02/2024 Telephone Adult Medicine [address] [phone] Jodi Mooney MD Referral (Patient does need a cd manufacturing supervisor if called. Also would like to make sure the provider is referred to is advised he needs one as well.) from Last 3 Months Immunizations Name Administration [...] Mass Index 32.64 09/12/2024 12:58 PM EDT Plan of Treatment Upcoming Encounters Date Type Department Care Team (Late st Contact Info) Description 12/16/2024 1:15 PM EDT Office Visit Adult Medicine [address] [address] Billie Polk PA [address] [place] [address] Health Maintenance Due Date Last Done Comments [...] 5 season) 2024 01/22/2021, 12/17/2020 Influenza Vaccine (Season Ended) 2025 01/27/2020, 06/25/2019, 04/24/2018 Cholesterol Screening (Lipid Panel) 07/15/2026 [...] age to complete this topic Meningococcal B Vaccine Aged Out No l onger eligible based on patient's age to complete this topic RSV Immunization Patients Under 20 months Aged Out No longer eligible b ased on patient's age to complete this topic Varicella Vaccines Aged Out No longer eligible based on patient's age to complete this topic Goals Goal Patient Goal Type Associated Problems Recent Progress Patient-Stated? Author No pain General No Chester Araiza, PT shoulder and neck goals: STG 8 [...] visits from neck/shoulder eval General No Chester Araiza, PT Note: Pt will wake <3 x/wk due to shoulder and neck pain Pt will have no limitations in toileting due to shoulder pain Pt will require no assistance in dressing as it relates to shoulder and neck Sx. Pt will be able to flex neck and use phone x 30 min Procedures Procedure Name Priority Date/Time Associated Diagnosis Comments CBC WITH AUTO DIFFERENTIAL Routine 09/12/2024 12:20 PM EDT Fibromyalgia Polyarthralgia URIC ACID Routine 09/12/2024 12:20 PM EDT Fibromyalgia Polyarthralgia SEDIMENTATION RATE Routine 09/12/2024 12 :20 PM EDT Fibromyalgia Polyarthralgia RHEUMATOID FACTOR Routine 09/12/2024 12: 20 PM EDT Fibromyalgia Polyarthralgia C-REACTIVE PROTEIN Routine 09/12/2024 12 :20 PM EDT Fibromyalgia Polyarthralgia CBC AND DIFFERENTIAL Routine 09/12/2024 12:20 PM EDT Fibromyalgia Polyarthralgia HEMOGLOBIN A1C Routine 09/12/2024 12:20 PM EDT Bilateral hand pain MR WRIST WO CONTRAST RIGHT Routine 09/04/2024 8:19 PM EDT Bilateral hand pain LIPID PANEL Routine 07/15/2021 HEPATITIS C SCREENING Routine 06/25/2019 HIV SCREENING Routine 06/25/2019 from Last 3 Months or Most Recently Relevant to Health Maintenance Results * CBC auto differential (09/12/2024 12:20 PM EDT) WBC 5.9 4.8 - 10.8 K/[facility] LAB HEMETOLOGY METHOD 09/12/2024 2:14 PM EDT [facility] RBC 4.70 4.50 - 5.50 M/[facility] LAB HEMETOLOGY METHOD 09/12/2024 2:14 PM EDT [facility] Hemoglobin 14.5 13.5 - 17.5 g/dL LAB HEMETOLOGY METHOD 09/12/2024 2:14 PM EDT [facility] Hematocrit 43.2 42.0 - 54.0 % LAB HEMETOLOGY METHOD 09/12/2024 2:14 PM EDT [facility] MCV 92.7 79.0 - 98.0 FL LAB HEMETOLOGY METHOD 09/12/2024 2:14 PM EDT [facility] MCH 31.1 27.0 - 32.0 pcg LAB HEMETOLOGY METHOD 09/12/2024 2:14 PM EDT [facility] MCHC 33.6 32.0 - 37.0 g/dL LAB HEMETOLOGY METHOD 09/12/2024 2:[facility] RDW 11.4 11.0 - 15.0 % LAB HEMETOLOGY METHOD 09/12/2024 2:14 [facility] Platelets 355 130 - 400 K/mcL LAB HEMETOLOGY METHOD 09/12/2024 2:14 [facility] MPV 9.5 7.0 - 11.0 FL LAB HEMETOLOGY METHOD 09/12/2024 2:14 [facility] NRBC 0.0 <1.0 % LAB HEMETOLOGY METHOD 09/12/2024 2:14 PM EDT [facility] NRBC Absolute 0.00 <0.10 K/mcL LAB HEMETOLOGY METHOD 09/12/2024 2:14 PM EDT [facility] Neutrophils Relative 52.3 % LAB HEMETOLOGY METHOD 09/12/2024 2:14 [facility] Lymphocytes Relative 36.2 % LAB HEMETOLOGY METHOD 09/12/2024 2:14 PM [facility] Monocytes Relative 8.6 % LAB HEMETOLOGY METHOD 09/12/2024 2:14 PM EDT [facility] Eosinophils Relative 1.9 % LAB HEMETOLOGY METHOD 09/12/2024 2:14 PM EDT [facility] Basophils Relative 0.7 % LAB HEMETOLOGY METHOD 09/12/2024 2:14 PM EDT [facility] Immature Granulocytes Relative 0.3 % LAB HEMETOLOGY METHOD 09/12/2024 2:14 PM EDT [facility] Neutrophils Absolute 3.09 1.50 - 7.00 K/mcL LAB HEMETOLOGY METHOD 09/12/2024 2:14 PM EDT [facility] Lymphocytes Absolute 2.14 1.00 - 5.00 K/mcL LAB HEMETOLOGY METHOD 09/12/2024 2:14 PM EDT [facility] Monocytes Absolute 0.51 0.20 - 1.00 K/mcL LAB HEMETOLOGY METHOD 09/12/2024 2:14 PM EDT [facility] Eosinophils Absolute 0.11 0.00 - 0.50 K/mcL LAB HEMETOLOGY METHOD 09/12/2024 2:14 PM EDT [facility] Basophils Absolute 0.04 0.00 - 0.20 K/mcL LAB HEMETOLOGY METHOD 09/12/2024 2:14 PM EDT [facility] Immature Granulocytes Absolute 0.02 0.00 - 0.03 K/mcL LAB HEMETOLOGY METHOD 09/12/2024 2:14 PM EDT [facility] Blood Venous blood specimen / Unknown Venipuncture / Unknown 09/12/2024 12:20 PM EDT 09/12/2024 12:20 PM EDT Francisca Walton MD LAB BLOOD ORDERABLES Final Re sult [facility] [address] [place] [address], * Sedimentation rate (09/12/2024 12:20 PM EDT) Sed Rate 5 0 - 15 mm/hr LAB HEMETOLOGY METHOD 09/12/2024 2:10 PM EDT [facility] Blood Venous blood specimen / Unknown Venipuncture / Unknown 09/12/2024 12:20 PM EDT 09/12/2024 12:20 PM EDT us Francisca Walton MD LAB BLOOD ORDERABLES Final Re sult [facility] [address] [place] [address], [place] [phone] * Rheumatoid factor (09/12/2024 12:20 PM EDT) Pathologist [facility] Rheumatoid Factor <10.0 <15.0 I Unit/mL LAB CHEMISTRY METHOD 09/12/2024 2:50 PM EDT [facility] Blood Venous blood specimen / Unknown Venipuncture / Unknown 09/12/2024 12:20 PM EDT 09/12/2024 12:20 PM EDT us Francisca Walton MD LAB BLOOD ORDERABLES Final Re sult [facility] [address] [place] [address], [place] [phone] * C-reactive protein (09/12/2024 12:20 PM EDT) C-Reactive Protein 0.30 <=0.50 mg/dL LAB CHEMISTRY METHOD 09/12/2024 2:50 PM EDT [facility] Blood Venous blood specimen / Unknown Venipuncture / Unknown 09/12/2024 12:20 PM EDT 09/12/2024 12:20 PM EDT us Francisca Walton MD LAB BLOOD ORDERABLES Final Re sult [facility] [address] [place] [address], [place] [phone] * Uric acid (09/12/2024 12:20 PM EDT) Uric Acid 6.0 3.7 - 9.2 mg/dL LAB CHEMISTRY METHOD 09/12/2024 2:50 PM EDT [facility] Blood Venous blood specimen / Unknown Venipuncture / Unknown 09/12/2024 12:20 PM EDT 09/12/2024 12:20 PM EDT us Francisca Walton MD LAB BLOOD ORDERABLES Final Re sult Performing Organization Address [facility]/ZIP Co de Phone Number [facility] [address] [place] [address], [place] [phone] * Hemoglobin A1c (09/12/2024 12:20 PM EDT) Pathologist [facility] Hemoglobin A1C 5.5 <6.5 % LAB CHEMISTRY METHOD 09/12/2024 10:10 PM EDT [facility] Mean Bld Glu Estim. 111 mg/dL LAB CHEMISTRY METHOD 09/12/2024 10:10 PM EDT [facility] Blood Venous blood specimen / Unknown Venipuncture / Unknown 09/12/2024 12:20 PM EDT 09/12/2024 12:20 PM EDT us Francisca Walton MD LAB BLOOD ORDERABLES Final Re sult [facility] [address] [place] [address], [place] [phone] * MR Wrist wo Contrast Right (09/04/2024 8:19 PM EDT) Anatomical Region Laterality Modality Upper Extremities, Wrist Right Magneti c Resonance 09/05/2024 3:21 AM EDT Impressions 09/05/2024 3:28 AM EDT 1. ??Degenerative changes of the right wrist 2. 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 Wrist pain, chronic, osteoarthritis suspected COMPARISON: ??None TECHNIQUE: ??Multiplanar, multisequence MRI examination was performed of the RIGHT wrist without intravenous contrast. FINDINGS: Bone/cartilage: No acute fracture or dislocation. ??Mild negative ulnar variance. ??Cystic change involving the lunate and capitate. ??Hypertrophic lipping of the thumb CMC and STT articulation. ??Bone islands of the lunate and triquetrum. Triangular fibrocartilage:Degenerative signal without tear. Ligaments:The scapholunate and lunotriquetral ligaments are intact. ??Central perforation of the scapholunate ligament. Tendons:Flexor and extensor tendons are normal in position, signal and configuration. Carpal tunnel:Normal. ??Median nerve position, signal and morphology are normal. Guyon's Canal:Normal. ??Ulnar nerve position, signal and morphology are normal. 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 ??Right wrist joint fluid. Procedure Note Aydee Ballard MD - 09/05/2024 INDICATION: Wrist pain, chronic, osteoarthritis suspected COMPARISON: None TECHNIQUE: Multiplanar, multisequence MRI examination was performed ofthe RIGHT wrist without intravenous contrast. FINDINGS: Bone/cartilage: No acute fracture or dislocation. Mild negative ulnarvariance. Cystic change involving the lunate and capitate. Hypertrophiclipping of the thumb CMC and STT articulation. Bone islands of the lunateand triquetrum. Triangular fibrocartilage:Degenerative signal without tear. Ligaments:The scapholunate and lunotriquetral ligaments are intact.Central perforation of the scapholunate ligament. Tendons:Flexor and extensor tendons are normal in position, signal andconfiguration. Carpal tunnel:Normal. Median nerve position, signal and morphology arenormal. Guyon's Canal:Normal. Ulnar nerve position, signal and morphology arenormal. Miscellaneous:Multiseptated volar ganglion at the level of the distalradius measuring 9 x 3 mm and 7 x 5 mm cyst. Right wrist joint fluid. IMPRESSION: 1. Degenerative changes of the right wrist 2. 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 -------- FINAL REPORT -------- Dictated By: Aydee Ballard Dictated Date: 09/05/2024 03:21 ET Assigned Physician: Aydee Ballard Reviewed and Electronically Signed By: Aydee Ballard Signed Date: 09/05/2024 03:28 ET Workstation ID: [id number] Transcribed By: Self Edit Transcribed Date: 09/05/2024 03:21 ET Francisca Walton MD IMG MRI PROCEDURES Final Resu lt * (ABNORMAL) Lipid panel (07/15/2021) [facility] LDL/HDL Ratio 5(A) 0 - 4 Triglycerides 253(A) 0 - 150 mg/dL Cholesterol 188 0 - 200 mg/dL HDL 41 >=40 mg/dL LDL Cholesterol 97 0 - 100 mg/dL Blood Venous blood specimen / Unknown Historical Provider LAB BLOOD ORDERABLES Simona l Result * HIV Screening (06/25/2019) [facility] HIV Screening ABSTRACTED [facility] Provider HEALTH MAINTENANCE Final Result * Hepatitis C Screening (06/25/2019) [facility] Hepatitis C Screening ABSTRACTED Historical Provider HEALTH MAINTENANCE Final Result from Last 3 Months or Most Recently Relevant to Health Maintenance Insurance [facility] Care Teams Route Sales Person Relationship Specialty Start Date End Date Jodi Mooney MD [address] [place] [address] PCP - General 08/30/22
--- OUTSIDE RECORDS SUMMARY | 2024-09-17 06:25 | XMS_ITS | Encounter Summary ---
[facility] Address [address] [place] [address] Care Team Providers Care Cdl Service Technician Name Role Phone Pam Feng MD Unavailable [phone] Gail Pagan PA-C Unavailable [phone] Dustin Palacios PA-C Unavailable [phone] Jorge Cheng Primary Care Provider [phone] Jodi Mooney MD Primary Care Provider Reason for Visit * Reason Onset Date Comments TEST RESULTS 03/22/2022 Encounter Details Date Type Department Care Team Description 03/22/2022 Telephone Adult [address] [phone] Rylie Macias MD [address] [place] [address] [phone] TEST RESULTS Social History Tobacco Use Types Packs/Day Years [...] encounter Miscellaneous Notes * Telephone Encounter - Daniela Leach Rn - 03/25/2022 11:[address] Macias not in will forward message for his return * Telephone Encounter - Junior Viera - 03/25/2022 11:01 AM EST The patient is returning the call with the assistance of an manufacturing sales representative. * Telephone Encounter - Dahlia Hoff M.A. - 03/22/2022 3:31 PM EST Pt returning Dr Macias's call * Telephone Encounter - Junior Viera - 03/22/2022 3:21 PM EST Please advise, this call was taken with the assistance of a log handler. Inform patient: ANY URGENT OR ABNORMAL RESULTS WIILL RESULT IN A CALL BACK TO THE PATIENT MP. Type of test: X-RAY EXAM OF HAND, 3+ VIEWS Date test was performed: 02/09/2022 Where was the test performed: [facility] Who ordered this test?: Dr. Rylie Macias Is the doctor here today?: YES Can the message wait until the doctor returns?: NO IF PATIENT'S PCP IS NOT IN INSTRUCT PATIENT THAT THEY WILL RECEIVE A CALL BACK WHEN THE PCP IS IN THE OFFICE NEXT. documented in this encounter Plan of Treatment Not on file documented as of this encounter Visit Diagnoses Not on filedocumented in this encounter Care Teams Cdl Service Technician Relationship Specialty Start Date End Date Jorge Cheng [address] [place] [address] PCP - General Internal Medicine 01/17/22 08/29/22 Jodi Mooney MD [address] [place] [address] PCP - General Internal Medicine 08/30/22 Pam Feng MD [address] [phone] Surgeon Neurosurgery 10/12/21 Gail Pagan PA-C [address] [phone] Specialist Neurosurgery 10/12/21 Dustin Palacios PA-C 175 [facility] [address] [place] [address] Specialist Neurosurgery 10/12/21 documented as of this encounter
--- OUTSIDE RECORDS SUMMARY | 2024-09-17 06:25 | XMS_ITS | Encounter Summary ---
[facility] Address [address] [place] [address] Care Team Providers Care Mixer Foam Rubber Name Role Phone Herrera Tucker MD Primary Care Provider [phone] Hollis Garcia MD Primary Care Provider Herrera Tucker MD Primary Care Provider [phone] Bertin Castellon PA-C Primary Care Provider [phone] Pam Feng MD Unavailable [phone] Gail Pagan PA-C Unavailable Dustin Palacios PA-C Unavailable Jorge Cheng Primary Care Provider Jodi Mooney MD Primary Care Provider [phone] Encounter Details Date Type Department Care Team Description 09/28/2018 Call Center Supervisor Report Medical Records [address] [place] [address] Pam Feng MD [address] [place] [address] [address] [place], [place] [phone] Social History Tobacco Use Types Packs/Day Years [...] on filedocumented in this encounter Care Teams Mixer Foam Rubber Relationship Specialty Start Date End Date Herrera Tucker MD [address] [place] [address] PCP - General Internal Medicine 12/20/18 06/30/19 Hollis Garcia MD [address] [place] [address] PCP - General Internal Medicine 07/01/19 05/17/20 Herrera Tucker MD [address] [place] [address] PCP - General 07/31/18 12/19/18 Bertin Castellon PA-C [address] [place] [address] PCP - General Internal Medicine 05/18/20 01/16/22 Jorge Cheng [address] [place] [address] PCP - General Internal Medicine 01/17/22 08/29/22 Jodi Mooney MD [address] [place] [address] PCP - General Internal Medicine 08/30/22 Pam Feng MD [address] [address] Surgeon Neurosurgery 10/12/21 Gail Pagan PA-C [address] [address] Specialist Neurosurgery 10/12/21 Dustin Palacios PA-C [address] [address] Specialist Neurosurgery 10/12/21 documented as of this encounter
--- OUTSIDE RECORDS SUMMARY | 2024-09-17 06:25 | XMS_ITS | Encounter Summary ---
Author Organization [facility] Address [address] [place] [address] Care Team Providers Care Commercial Credit Head Name Role Phone Pam Feng MD Unavailable [phone] Gail Pagan PA-C Unavailable [phone] Dustin Palacios PA-C Unavailable Jodi Mooney MD Primary Care Provider [phone] Encounter Details Date Type Department Care Team Description 02/09/2024 SCAN [facility] Medical [facility] Neurosurgery [place] [facility] [address] [address] Pam Feng MD [address] [phone] Social History Tobacco Use Types Packs/Day Years [...] on filedocumented in this encounter Care Teams Commercial Credit Head Relationship Specialty Start Date End Date Jodi Mooney MD [address] [place] [address] [phone] PCP - General Internal Medicine 08/30/22 Pam Feng MD 175 [facility] [address] [place] [address] [phone] Surgeon Neurosurgery 10/12/21 Gail Pagan PA-C [address] [address] Specialist Neurosurgery 10/12/21 Dustin Palacios PA-C 175 [facility] [address] [place] [address] Specialist Neurosurgery 10/12/21 documented as of this encounter
--- OUTSIDE RECORDS SUMMARY | 2024-09-17 06:25 | XMS_ITS | Encounter Summary ---
[facility] Organization [facility] Address [address] [place] [address] Care Team Providers Care Facilities Planner Name Role Phone Herrera Tucker MD Primary Care Provider [phone] Hollis Garcia MD Primary Care Provider [phone] Bertin Castellon PA-C Primary Care Provider [phone] Pam Feng MD Unavailable [phone] Gail Pagan PA-C Unavailable [phone] Dustin Palacios PA-C Unavailable [phone] Jorge Cheng Primary Care Provider [phone] Jodi Mooney MD Primary Care Provider [phone] Reason for Visit * Reason Onset Date Comments Advice 02/01/2019 called pt to arr joseline for procedure at 2pm instructed pt on all the education needs to know prior to procedure date pt understood. Encounter Details Date Type Department Care Team Description 02/01/2019 Telephone Vascular Surgery - [address] [place] [address] Markus Guzmán MD Advice (called pt to arrive for procedure at 2pm instructed pt on all the education needs to know prior to procedure date pt understood. ) Social History Tobacco Use Types Packs/Day [...] on filedocumented in this encounter Care Teams Facilities Planner Relationship Specialty Start Date End Date Herrera Tucker MD [address] [place] [address] PCP - General Internal Medicine 12/20/18 06/30/19 Hollis Garcia MD [address] [place] [address] PCP - General Internal Medicine 07/01/19 05/17/20 Bertin Castellon PA-C [address] [place] [address] PCP - General Internal Medicine 05/18/20 01/16/22 Jorge Cheng [address] [place] [address] PCP - General Internal Medicine 01/17/22 08/29/22 Jodi Mooney MD [address] [place] [address] PCP - General Internal Medicine 08/30/22 Pam Feng MD [address] [address] Surgeon Neurosurgery 10/12/21 Gail Pagan PA-C [address] [address] Specialist Neurosurgery 10/12/21 Dustin Palacios PA-C [address] [address] Specialist Neurosurgery 10/12/21 documented as of this encounter
--- OUTSIDE RECORDS SUMMARY | 2024-09-17 06:25 | XMS_ITS | Encounter Summary ---
[facility] Address [address] [place] [address] Care Team Providers Care Commercial Solar Sales Consultant Name Role Phone Artie Damon MD Primary Care Provider Un available Herrera Tucker MD Primary Care Provider [phone] Hollis Garcia MD Primary Care Provider [phone] Herrera Tucker MD Primary Care Provider [phone] Bertin Castellon PA-C Primary Care Provider [phone] Pam Feng MD Unavailable [phone] Gail Pagan PA-C Unavailable Dustin Palacios PA-C Unavailable [phone] Jorge Cheng Primary Care Provider [phone] Jodi Mooney MD Primary Care Provider [phone] Reason for Visit * Reason Onset Date Comments Faxed Order 06/30/2018 Encounter Details Date Type Department Care Team Description 06/30/2018 Telephone Adult [address] [address] Artie Damon MD Faxed Order [...] encounter Miscellaneous Notes * Telephone Encounter - Rochelle Hendricks - 06/30/2018 9:59 AM EST JIHAN ORTA IS FAXING ORDERS TO BE SIGN AND FAX BACK TO [phone]. documented in this encounter Plan of Treatment Not on file documented as of this encounter Visit Diagnoses Not on filedocumented in this encounter Care Teams Commercial Solar Sales Consultant Relationship Specialty Start Date End Date Artie Damon MD PCP - General Internal Medicine 05/12/17 Herrera Tucker MD [address] [place] [address] PCP - General Internal Medicine 12/20/18 06/30/19 Hollis Garcia MD [address] [place] [address] PCP - General Internal Medicine 07/01/19 05/17/20 Herrera Tucker MD [address] [place] [address] PCP - General 07/31/18 12/19/18 Bertin Castellon PA-C [address] [place] [address] PCP - General Internal Medicine 05/18/20 01/16/22 Jorge Cheng [address] [place] [address] PCP - General Internal Medicine 01/17/22 08/29/22 Jodi Mooney MD [address] [place] [address] PCP - General Internal Medicine 08/30/22 Pam Feng MD [address] [address] Surgeon Neurosurgery 10/12/21 Gail Pagan PA-C [address] [address] Specialist Neurosurgery 10/12/21 Dustin Palacios PA-C [address] [address] Specialist Neurosurgery 10/12/21 documented as of this encounter
--- OUTSIDE RECORDS SUMMARY | 2024-09-17 06:25 | XMS_ITS | Encounter Summary ---
Author Organization [facility] Address [address] [place] [address] Care Team Providers Care Bevel Polisher Name Role Phone Hollis Garcia MD Primary Care Provider Bertin Castellon PA-C Primary Care Provider Pam Feng MD Unavailable [phone] Gail Pagan PA-C Unavailable [phone] Dustin Palacios PA-C Unavailable Jorge Cheng Primary Care Provider Jodi Mooney MD Primary Care Provider [phone] Encounter Details Date Type Department Care Team Description 03/23/2020 Refill Rheumatology - [address] [phone] Michael Diehl PA Social History Tobacco Use Types Packs/Day Years [...] on filedocumented in this encounter Care Teams Bevel Polisher Relationship Specialty Start Date End Date Hollis Garcia MD [address] [place] [address] PCP - General Internal Medicine 07/01/19 05/17/20 Bertin Castellon PA-C [address] [place] [address] PCP - General Internal Medicine 05/18/20 01/16/22 oJrge Cheng [address] [place] [address] PCP - General Internal Medicine 01/17/22 08/29/22 Jodi Mooney MD [address] [place] [address] PCP - General Internal Medicine 08/30/22 Pam Feng MD [address] [address] Surgeon Neurosurgery 10/12/21 Gail Pagan PA-C [address] [address] Specialist Neurosurgery 10/12/21 Dustin Palacios PA-C [address] [address] Specialist Neurosurgery 10/12/21 documented as of this encounter
--- OUTSIDE RECORDS SUMMARY | 2024-09-17 06:25 | XMS_ITS | Encounter Summary ---
[facility] Organization [facility] Address [address] [place] [address] Care Team Providers Care Guitar Technician Name Role Phone Artie Damon MD Primary Care Provider Un available Herrera Tucker MD Primary Care Provider Hollis Garcia MD Primary Care Provider [phone] Herrera Tucker MD Primary Care Provider [phone] Bertin Castellon PA-C Primary Care Provider [phone] Pam Feng MD Unavailable [phone] Gail Pagan PA-C Unavailable Dustin Palacios PA-C Unavailable Jorge Cheng Primary Care Provider Jodi Mooney MD Primary Care Provider Reason for Visit * Reason Onset Date Comments [facility] Call 04/30/2018 [facility] Encounter Details Date Type Department Care Team Description 04/30/2018 Telephone Adult Medicine [address] [phone] Artie Damon MD [facility] Call ([facility]) Social History Tobacco Use Types Packs/Day Years [...] encounter Miscellaneous Notes * Telephone Encounter - Theodora Rodriguez L.P.N. - 04/30/2018 11:39 AM EST Call and spoke to Thomas and she would like to decrease pt's visit as he is improving and to be discharge sooner. verbal ok given.will send FYI to dr Ley if other instructions are required will call vna Thomas overtonoliva ramos on her v/m and call office as well. * Telephone Encounter - Alicia Aguilar - 04/30/2018 11:00 AM EST [facility] CALL Which [facility] office is calling? [facility] Full name of caller: THOMAS The caller is A Physical Therapist Is the caller at the patients home?: NO Reason for call: The physical therapist wants to cut back to one visit per week and they need verbal orders. You can leave the verbal order request on voice mail if no answer. Does caller need an urgent call back? NO Was CONTACT Telephone # obtained above?: YES Fax #: documented in this encounter Plan of Treatment Not on file documented as of this encounter Visit Diagnoses Not on filedocumented in this encounter Care Teams Guitar Technician Relationship Specialty Start Date End Date Artie Damon MD PCP - General Internal Medicine 05/12/17 Herrera Tucker MD [address] [place] [address] PCP - General Internal Medicine 12/20/18 06/30/19 Hollis Garcia MD [address] [place] [address] PCP - General Internal Medicine 07/01/19 05/17/20 Herrera Tucker MD [address] [place] [address] PCP - General 07/31/18 12/19/18 Bertin Castellon PA-C [address] [place] [address] PCP - General Internal Medicine 05/18/20 01/16/22 Jorge Cheng [address] [place] [address] PCP - General Internal Medicine 01/17/22 08/29/22 Jodi Mooney MD [address] [place] [address] PCP - General Internal Medicine 08/30/22 Pam Feng MD [address] [address] Surgeon Neurosurgery 10/12/21 Gail Pagan PA-C [address] [address] Specialist Neurosurgery 10/12/21 Dustin Palacios PA-C [address] [address] Specialist Neurosurgery 10/12/21 documented as of this encounter
--- OUTSIDE RECORDS SUMMARY | 2024-09-17 06:25 | XMS_ITS | Encounter Summary ---
[facility] Address [address] [place] [address] Care Team Providers Care Service Unit Operator Oil Well Name Role Phone Artie Damon MD Primary Care Provider Un available Herrera Tucker MD Primary Care Provider Hollis Garcia MD Primary Care Provider [phone] Herrera Tucker MD Primary Care Provider Bertin CastellonC Primary Care Provider [phone] Pam Feng MD Unavailable [phone] Gail Pagan PA-C Unavailable [phone] Dustin Palacios PA-C Unavailable [phone] Jorge Cheng Primary Care Provider [phone] Jodi Mooney MD Primary Care Provider [phone] Encounter Details Date Type Department Care Team Description 06/01/2018 Vocational Ed Instructor Report Medical Records [address] [place] [address] Sanjiv Feng MD Social History Tobacco Use Types Packs/Day [...] on filedocumented in this encounter Care Teams Service Unit Operator Oil Well Relationship Specialty Start Date End Date Artie Damon MD PCP - General Internal Medicine 05/12/17 Herrera Tucker MD [address] [place] [address] PCP - General Internal Medicine 12/20/18 06/30/19 Hollis Garcia MD [address] [place] [address] PCP - General Internal Medicine 07/01/19 05/17/20 Herrera Tucker MD [address] [place] [address] PCP - General 07/31/18 12/19/18 Bertin Castellon PA-C [address] [place] [address] PCP - General Internal Medicine 05/18/20 01/16/22 Jorge Cheng [address] [place] [address] PCP - General Internal Medicine 01/17/22 08/29/22 Jodi Mooney MD [address] [place] [address] PCP - General Internal Medicine 08/30/22 Pam Feng MD [address] [address] Surgeon Neurosurgery 10/12/21 Gail Pagan PA-C [address] [address] Specialist Neurosurgery 10/12/21 Dustin Palacios PA-C [address] [address] Specialist Neurosurgery 10/12/21 documented as of this encounter
--- OUTSIDE RECORDS SUMMARY | 2024-09-17 06:25 | XMS_ITS | Encounter Summary ---
[facility] Address [address] [place] [address] Care Team Providers Care Compensation Director Name Role Phone Jodi Mooney MD Primary Care Provider [phone] Encounter Details Date Type Department Care Team (Late st Contact Info) Description 02/28/2024 9:34 AM EDT Hospital Encounter TH HISTORIC ENCOUNTERS EASTERN CONVERSION ONLY Pam Feng MD [address] [place] [address] Social History Tobacco Use Types Packs/Day Years [...] as of this encounter Plan of Treatment Upcoming Encounters Date Type Department Care Team (Late st Contact Info) Description 12/16/2024 1:15 PM EDT Office Visit Adult Medicine [address] [phone] Billie Polk PA [address] [place] [address] documented as of this encounter Goals Goal [...] on filedocumented in this encounter Care Teams Compensation Director Relationship Specialty Start Date End Date Jodi Mooney MD [address] [place] [address] PCP - General 08/30/22 documented as of this encounter
--- OUTSIDE RECORDS SUMMARY | 2024-09-17 06:25 | XMS_ITS | Encounter Summary ---
[facility] Address [address] [place] [address] Care Team Providers Care Telecommunications Field Engineer Name Role Phone Artie Damon MD Primary Care Provider Un available Herrera Tucker MD Primary Care Provider Hollis Garcia MD Primary Care Provider [phone] Herrera Tucker MD Primary Care Provider Bertin Castellon PA-C Primary Care Provider [phone] Pam Feng MD Unavailable [phone] Gail Pagan PA-C Unavailable Dustin Palacios PA-C Unavailable Jorge Cheng Primary Care Provider [phone] Jodi Mooney MD Primary Care Provider [phone] Encounter Details Date Type Department Care Team Description 06/29/2018 Home Health Certification Medical Records [address] [place] [address] Abstract, Provider Social History Tobacco Use Types [...] on filedocumented in this encounter Care Teams Telecommunications Field Engineer Relationship Specialty Start Date End Date Artie Damon MD PCP - General Internal Medicine 05/12/17 Herrera Tucker MD [address] [place] [address] PCP - General Internal Medicine 12/20/18 06/30/19 Hollis Garcia MD [address] [place] [address] PCP - General Internal Medicine 07/01/19 05/17/20 Herrera Tucker MD [address] [place] [address] PCP - General 07/31/18 12/19/18 Bertin Castellon PA-C [address] [place] [address] PCP - General Internal Medicine 05/18/20 01/16/22 Jorge Cheng [address] [place] [address] PCP - General Internal Medicine 01/17/22 08/29/22 Jodi Mooney MD [address] [place] [address] PCP - General Internal Medicine 08/30/22 Pam Feng MD [address] [address] Surgeon Neurosurgery 10/12/21 Gail Pagan PA-C [address] [address] Specialist Neurosurgery 10/12/21 Dustin Palacios PA-C [address] [address] Specialist Neurosurgery 10/12/21 documented as of this encounter
--- OUTSIDE RECORDS SUMMARY | 2024-09-17 06:25 | XMS_ITS | Encounter Summary ---
[facility] Address [address] [place] [address] Care Team Providers Care Development Eng Name Role Phone Artie Damon MD Primary Care Provider Un available Herrera Tucker MD Primary Care Provider Hollis Garcia MD Primary Care Provider [phone] Herrera Tucker MD Primary Care Provider Bertin Castellon PA-C Primary Care Provider [phone] Pam Feng MD Unavailable [phone] Gail Pagan PA-C Unavailable Dustin Palacios PA-C Unavailable [phone] Jorge Cheng Primary Care Provider [phone] Jodi Mooney MD Primary Care Provider [phone] Reason for Visit * Reason Onset Date Comments Faxed Order 05/26/2018 Encounter Details Date Type Department Care Team Description 05/26/2018 Telephone Adult [address] [address] Artie Damon MD Faxed Order [...] encounter Miscellaneous Notes * Telephone Encounter - Tangela Vaughn - 05/26/2018 11:55 AM EST Please review sign date and return faxed order to [facility] at [phone] documented in this encounter Plan of Treatment Not on file documented as of this encounter Visit Diagnoses Not on filedocumented in this encounter Care Teams Development Eng Relationship Specialty Start Date End Date Artie Damon MD PCP - General Internal Medicine 05/12/17 Herrera Tucker MD [address] [place] [address] PCP - General Internal Medicine 12/20/18 06/30/19 Hollis Garcia MD [address] [place] [address] PCP - General Internal Medicine 07/01/19 05/17/20 Herrera Tucker MD [address] [place] [address] PCP - General 07/31/18 12/19/18 Bertin Castellon PA-C [address] [place] [address] PCP - General Internal Medicine 05/18/20 01/16/22 Jorge Cheng [address] [place] [address] PCP - General Internal Medicine 01/17/22 08/29/22 Jodi Mooney MD [address] [place] [address] PCP - General Internal Medicine 08/30/22 Pam Feng MD [address] [address] Surgeon Neurosurgery 10/12/21 Gail Pagan PA-C [address] [address] Specialist Neurosurgery 10/12/21 Dustin Palacios PA-C [address] [address] Specialist Neurosurgery 10/12/21 documented as of this encounter
--- OUTSIDE RECORDS SUMMARY | 2024-09-17 06:25 | XMS_ITS | Encounter Summary ---
[facility] Organization [facility] Address [address] [place] [address] Care Team Providers Care Pediatric Occupational Therapist Name Role Phone Pam Feng MD Unavailable [phone] Gail Pagan PA-C Unavailable [phone] Dustin Palacios PA-C Unavailable [phone] Jorge Cheng Primary Care Provider Jodi Mooney MD Primary Care Provider Reason for Visit * Reason Onset Date Comments TEST RESULTS 02/10/2022 Encounter Details Date Type Department Care Team Description 02/10/2022 Telephone Adult Medicine [address] [phone] Jorge Cheng [address] [place] [address] [phone] TEST RESULTS Social History Tobacco Use Types [...] suspected to have Coronavirus/COVID-19? No / Unsure 02/09/2022 10:45 AM EDT documented as of this encounter Miscellaneous Notes * Telephone Encounter - Demian Mckeon - 02/14/2022 12:10 PM EDT Patient returning call to pcp in regards to test results, please contact at [phone], patient will need someone who speaks Jamaican * Telephone Encounter - Rylie Macias MD - 02/11/2022 9:49 AM EDT Patient was called this morning. However he did not answer. Voicemail was left with callback [facility]. * Telephone Encounter - Sy Mane M.A. - 02/10/2022 1:31 PM EDT Patient was called and informed of xray results. Patient is questioning the cause of the lump he has on his right hand. Would like to speak with Dr Macias. Patient is aware Dr Macias is not in the office this afternoon. Ok to wait. * Telephone Encounter - Janell Kay - 02/10/2022 12:15 PM EDT Call sent to [facility] to call patient * Telephone Encounter - Harleen Malloy - 02/10/2022 12:01 PM EDT Inform patient: ANY URGENT OR ABNORMAL RESULTS WIILL RESULT IN A CALL BACK TO THE PATIENT MP. Patient asking for a call from a Jamaican speaker with test results Type of test: :xrays Date test was performed: 02/09/22 Where was the test performed: rb Who ordered this test?: Dr Cheng Is the doctor here today?: YES Can the message wait until the doctor returns?: NO IF PATIENT'S PCP IS NOT IN INSTRUCT PATIENT THAT THEY WILL RECEIVE A CALL BACK WHEN THE PCP IS IN THE OFFICE NEXT. documented in this encounter Plan of Treatment Not on file documented as of this encounter Visit Diagnoses Not on filedocumented in this encounter Care Teams Pediatric Occupational Therapist Relationship Specialty Start Date End Date Jorge Cheng [address] [place] [address] PCP - General Internal Medicine 01/17/22 08/29/22 Jodi Mooney MD [address] [place] [address] PCP - General Internal Medicine 08/30/22 Pam Feng MD [address] [address] Surgeon Neurosurgery 10/12/21 Gail Pagan PA-C [address] [address] Specialist Neurosurgery 10/12/21 Dustin Palacios PA-C [address] [address] Specialist Neurosurgery 10/12/21 documented as of this encounter
--- OUTSIDE RECORDS SUMMARY | 2024-09-17 06:25 | XMS_ITS | Encounter Summary ---
[facility] Address [address] [place] [address] Care Team Providers Care Gas Combustion Engineer Name Role Phone Herrera Tucker MD Primary Care Provider Hollis Garcia MD Primary Care Provider [phone] Bertin Castellon PA-C Primary Care Provider Pam Feng MD Unavailable [phone] Gail Pagan PA-C Unavailable [phone] Dustin Palacios PA-C Unavailable [phone] Jorge Cheng Primary Care Provider [phone] Jodi Mooney MD Primary Care Provider [phone] Encounter Details Date Type Department Care Team Description 02/12/2019 Telephone Vascular Surgery [place] [address] [place] [address] Markus Guzmán MD Social History Tobacco Use [...] encounter Miscellaneous Notes * Telephone Encounter - Kyung Jain M.A. - 02/12/2019 2:38 PM EDT Spoke with patient and confirmed 04/01/19 @ 3:30PM L EVLT, informed patient to arrive 30 minutes early at 3pm. documented in this encounter Plan of Treatment Not on file documented as of this encounter Visit Diagnoses Not on filedocumented in this encounter Care Teams Gas Combustion Engineer Relationship Specialty Start Date End Date Herrera Tucker MD [address] [place] [address] PCP - General Internal Medicine 12/20/18 06/30/19 Hollis Garcia MD [address] [place] [address] PCP - General Internal Medicine 07/01/19 05/17/20 Bertin Castellon PA-C [address] [place] [address] PCP - General Internal Medicine 05/18/20 01/16/22 Jorge Cheng [address] [place] [address] PCP - General Internal Medicine 01/17/22 08/29/22 Jodi Mooney MD [address] [place] [address] PCP - General Internal Medicine 08/30/22 Pam Feng MD [address] [address] Surgeon Neurosurgery 10/12/21 Gail Pagan PA-C [address] [address] Specialist Neurosurgery 10/12/21 Dustin Palacios PA-C [address] [address] Specialist Neurosurgery 10/12/21 documented as of this encounter
--- OUTSIDE RECORDS SUMMARY | 2024-09-17 06:26 | XMS_ITS | Encounter Summary ---
Author Organization [facility] Address [address] [place] [address] Care Team Providers Care Commercial Lines Account Executive Name Role Phone Artie Damon MD Primary Care Provider Un available Herrera Tcuker MD Primary Care Provider [phone] Hollis Garcia MD Primary Care Provider Herrera Tucker MD Primary Care Provider Bertin Castellon-Kaitlynn Primary Care Provider [phone] Pam Feng MD Unavailable [phone] Gail Pagan PA-C Unavailable Dustin Palacios PA-C Unavailable Jorge Cheng Primary Care Provider Jodi Mooney MD Primary Care Provider [phone] Encounter Details Date Type Department Care Team Description 05/26/2017 Release of Information Medical Records [address] [place] [address] Abstract, Provider Social History Tobacco Use Types Packs/Day Years Used Date Smoking Tobacco: Former Cigarettes Q uit: 05/08/1999 Sex Assigned at Date Recorded Not on file Job Start Date Occupation Industry Not on file Not on file Not on file documented as of this encounter Plan of Treatment Not on file documented as of this encounter Visit Diagnoses Not on filedocumented in this encounter Care Teams Commercial Lines Account Executive Relationship Specialty Start Date End Date Artie Damon MD PCP - General Internal Medicine 05/12/17 Herrera Tucker MD [address] [place] [address] PCP - General Internal Medicine 12/20/18 06/30/19 Hollis Garcia MD [address] [place] [address] PCP - General Internal Medicine 07/01/19 05/17/20 Herrera Tucker MD [address] [place] [address] PCP - General 07/31/18 12/19/18 Bertin Castellon PA-C [address] [place] [address] PCP - General Internal Medicine 05/18/20 01/16/22 Jorge Cheng [address] [place] [address] PCP - General Internal Medicine 01/17/22 08/29/22 Jodi Mooney MD [address] [place] [address] PCP - General Internal Medicine 08/30/22 Pam Feng MD [address] [address] Surgeon Neurosurgery 10/12/21 Gail Pagan PA-C [address] [address] Specialist Neurosurgery 10/12/21 Dustin Palacios PA-C [address] [address] Specialist Neurosurgery 10/12/21 documented as of this encounter
--- OUTSIDE RECORDS SUMMARY | 2024-09-17 06:26 | XMS_ITS | Encounter Summary ---
Author Organization [facility] Address [address] [place] [address] Care Team Providers Care Merchandising Specialist Name Role Phone Herrera Tucker MD Primary Care Provider [phone] Hollis Garcia MD Primary Care Provider [phone] Bertin Castellon PA-C Primary Care Provider Pam Feng MD Unavailable [phone] Gail Pagan PA-C Unavailable Dustin Palacios PA-C Unavailable [phone] Jorge Cheng Primary Care Provider [phone] Jodi Mooney MD Primary Care Provider Reason for Referral * EXTERNAL (Routine) - Closed Specialty Diagnoses / Procedures Referred By Kya phillips Referred To Contact PAIN MANAGEMENT / Pain Management Procedures REFERRAL TO PAIN MANAGEMENT Kannan Lyman NP [address] [place] [address] External Pain Man Referral ID Status Reason Start Date Expiration Date Visits Re quested Visits Authorized [id number] Closed 06/17/2019 1 1 * EXTERNAL (Routine) - Authorized/Booked Specialty Diagnoses / Procedures Referred By Kya phillips Referred To Contact Mental Health Procedures REFERRAL TO BEHAVIORAL HEALTH Kannan Lyman NP [address] [place] [address] External B/Health Referral ID Status Reason Start Date Expiration Date V isits Requested Visits Authorized SEE NOTE Authorized/B ooked 06/17/2019 09/16/2019 1 1 Encounter Details Date Type Department Care Team Description 06/17/2019 Orders Only Adult Medicine [address] [address] Kannan Lyman, MALIKA Social History Tobacco Use Types Packs/Day Years [...] on filedocumented in this encounter Care Teams Merchandising Specialist Relationship Specialty Start Date End Date Herrera Tucker MD [address] [place] [address] PCP - General Internal Medicine 12/20/18 06/30/19 Hollis Garcia MD [address] [place] [address] PCP - General Internal Medicine 07/01/19 05/17/20 Bertin Castellon PA-C [address] [place] [address] PCP - General Internal Medicine 05/18/20 01/16/22 Jorge Cheng [address] [place] [address] PCP - General Internal Medicine 01/17/22 08/29/22 Jodi Mooney MD [address] [place] [address] PCP - General Internal Medicine 08/30/22 Pam Feng MD [address] [address] Surgeon Neurosurgery 10/12/21 Gail Pagan PA-C [address] [address] Specialist Neurosurgery 10/12/21 Dustin Palacios PA-C [address] [address] Specialist Neurosurgery 10/12/21 documented as of this encounter
--- OUTSIDE RECORDS SUMMARY | 2024-09-17 06:26 | XMS_ITS | Encounter Summary ---
[facility] Organization [facility] Address [address] [place] [address] Care Team Providers Care Senior Qa Analyst Name Role Phone Artie Damon MD Primary Care Provider Un available Herrera Tucker MD Primary Care Provider [phone] Hollis Garcia MD Primary Care Provider Herrera Tucker MD Primary Care Provider Bertin Castellon PA-C Primary Care Provider [phone] Pam Feng MD Unavailable [phone] Gail Pagan PA-C Unavailable Dustin Palacios PA-C Unavailable Jorge Cheng Primary Care Provider Jodi Mooney MD Primary Care Provider [phone] Encounter Details Date Type Department Care Team Description 08/12/2017 Walk In Clinic Visit Medical Records [address] [place] [address] Jose Alejandro Marcum MD Social History Tobacco Use Types Packs/Day [...] filedocumented in this encounter Care Teams Senior Qa Analyst Relationship Specialty Start Date End Date Artie Damon MD PCP - General Internal Medicine 05/12/17 Herrera Tucker MD [address] [place] [address] PCP - General Internal Medicine 12/20/18 06/30/19 Hollis Garcia MD [address] [place] [address] PCP - General Internal Medicine 07/01/19 05/17/20 Herrera Tucker MD [address] [place] [address] PCP - General 07/31/18 12/19/18 Bertin Castellon PA-C [address] [place] [address] PCP - General Internal Medicine 05/18/20 01/16/22 Jorge Cheng [address] [place] [address] PCP - General Internal Medicine 01/17/22 08/29/22 Jodi Mooney MD [address] [place] [address] PCP - General Internal Medicine 08/30/22 Pam Feng MD [address] [address] Surgeon Neurosurgery 10/12/21 Gail Pagan PA-C [address] [address] Specialist Neurosurgery 10/12/21 Dustin Palacios PA-C [address] [address] Specialist Neurosurgery 10/12/21 documented as of this encounter
--- OUTSIDE RECORDS SUMMARY | 2024-09-17 06:26 | XMS_ITS | Encounter Summary ---
Author Organization [facility] Address [address] [place] [address] Care Team Providers Care Medart Operator Name Role Phone Herrera Tucker MD Primary Care Provider Hollis Garcia MD Primary Care Provider Bertin Castellon PA-C Primary Care Provider [phone] Pam Feng MD Unavailable [phone] Gail Pagan PA-C Unavailable [phone] Dustin PalaciosC Unavailable Jorge Cheng Primary Care Provider Jodi Mooney MD Primary Care Provider Reason for Visit * Reason Onset Date Comments REFERRAL 06/07/2019 Encounter Details Date Type Department Care Team Description 06/07/2019 Telephone Adult Medicine [address] [id number] Marilynn Lyman NP REFERRAL Social History Tobacco Use Types Packs/Day [...] encounter Miscellaneous Notes * Telephone Encounter - Magy Montalvo M.A. - 06/07/2019 2:00 PM EST Message left advising pt /EC that marilynn is away from the office until 06/17/19 I advised her to contact [facility] pain amnagement per note from referrals pt's ins. Does not require a referral I asked her to call our office back * Telephone Encounter - Inocencia Apodaca - 06/07/2019 1:38 PM EST Constance Donovan Patient's spouse (on verbal) calling in [facility] the [facility] placed because of location documented in this encounter Plan of Treatment Not on file documented as of this encounter Visit Diagnoses Not on filedocumented in this encounter Care Teams Medart Operator Relationship Specialty Start Date End Date Herrera Tucker MD [address] [place] [address] PCP - General Internal Medicine 12/20/18 06/30/19 Hollis Garcia MD [address] [place] [address] PCP - General Internal Medicine 07/01/19 05/17/20 Bertin Castellon PA-C [address] [place] [address] PCP - General Internal Medicine 05/18/20 01/16/22 Jorge Cheng [address] [place] [address] PCP - General Internal Medicine 01/17/22 08/29/22 Jodi Mooney MD [address] [place] [address] PCP - General Internal Medicine 08/30/22 Pam Feng MD 175 [facility] [address] [place] [phone] Surgeon Neurosurgery 10/12/21 aGil Pagan PA-C [address] [address] Specialist Neurosurgery 10/12/21 Dustin Palacios PA-C 175 [facility] [address] [place] [address] Specialist Neurosurgery 10/12/21 documented as of this encounter
== END 2024-09-17 06:24 | disposition home or self-care (01) ==
LOC: CF 06:23
PROVIDERS: Visit Provider Anesthesiology
DX: Z13.89 Encounter for screening for other disorder (principal)

== ENCOUNTER 2024-11-26 06:11 | Outpatient (REF) | payer OTHER, SELFPAY ==
--- OUTSIDE RECORDS SUMMARY | 2024-11-26 06:13 | XMS_ITS | Data Portability ---
Author Organization MD - [facility], Allergy Address [address] [address] Care Team Providers Care Home Mission Worker Name Role Phone EZEQUIEL STEWART Primary Care Provider Assessment No assessment recorded. Plan of Treatment Reminders Order Date Submit Date Provider Last Modified By Organization Details Last Modified Time Details Appointments Establish ed 15 2024 03:30P M PEDRO LUIS VALDERRAMA MD Not available Not available Not available Lab None recorded. Referral None recorded. Procedures None recorded. Surgeries None recorded. Imaging None recorded. Medication Orders fluticaso ne propionat e 50 mcg/actua tion nasal spray,ana luisa pension 2023 024 [facility]Pharmacy #[id number], [address] [place], [address], 04/15/2024 14:04:59 ofloxacin 0.3 % ear drops [address] [facility]/Pharmacy #[id number], [address] [place], [address], 04/15/2024 14:02:54 Patient TargetsNo targets recorded. Patient InstructionsNo instructions recorded. Reason for Referral None Reported. Results Created Date Observation Date Name Description Value Unit Range Abnormal Flag Note LastModifiedBy Organization Detail LastModifiedTime 04/26/20 24 audio gram No observ ation record ed. BARCODE Not Available 2023 12:17:14 Result Notes None recorded. Problems Name Problem SNOMED Code Status Onset Date Resolution Date Notes Provider Name and Address Organization Details Recorded Time Chronic right myringitis 6996335067558 105 Active 2023 PEDRO LUIS VALDERRAMA MD [address] [address], [place], [address], [place] - [facility] 4 14:02:12 Nasal congestion 22395819 Active 2023 PEDRO LUIS VALDERRAMA MD [address] [address], [place], [address], [place] - [facility] 14:03:39 Abnormal auditory perception 47123998 Active 2023 CAROLANN WARD AUD [address] [address], [place], [address], [facility] - [facility] 14:24:45 Problem Notes None recorded. Procedures Surgical History Date Name Laterality Status Provider Name and Address Organization Details Recorded Time Air & Speech Audio with Tymps - 09551, 94088 & 94467 completed IKER GONZALEZ [address], [address], [facility] - [facility] 04/15/2024 14:24:24 Lumbar Spine Surgery completed PEDRO LUIS VALDERRAMA MD [address], [address], [facility] 04/22/2024 09:48:46 Imaging Results None recorded. Procedure Notes None recorded. Medical Equipment None Reported. Allergies Allergen ID Allergen Name Allergen Category Reaction Reaction Severity Criticality Documentation Date Start Date Code Code System Note Provider Name and Address Organization Details Recorded Time 861205 aspirin medicatio n Not available Not available Not available 04/15/2024 1191 RxNorm Thalia brenner [facility] 13:48:11 060008 naproxen medicatio n Not available Not available Not available 04/15/2024 7258 RxNorm Thalia brenner [facility] 13:48:34 Medications Name Sig Start Date Stop Date Status Note LastModified by Organization Details LastModified Time cyclobenzap rine 10 mg tablet TAKE 1 TABLET BY MOUTH EVERY 8 HOURS active Not Available Not Available No t Available sertraline 100 mg tablet PLEASE SEE ATTACHED FOR DETAILED DIRECTION S active Not Available Not Available No t Available ofloxacin 0.3 % ear drops Instill 5 drops twice a day by otic route for 10 days. active Not Available Not Available No t Available gabapentin 800 mg tablet TAKE 1 TABLET BY MOUTH TWICE A DAY active Not Available Not Available No t Available trazodone 100 mg tablet Take 1 tablet twice a day by oral route. active Not Available Not Available No t Available methylpredn isolone 4 mg tablets in a dose pack TAKE 6 TABLETS ON DAY 1 DIRECTED ON PACKAGE AND DECREASE BY 1 TAB EACH DAY FOR A TOTAL OF 6 DAYS active Not Available Not Available No t Available fluticasone propionate 50 mcg/actuati on nasal spray,suspe nsion [place] 2 sprays every day by intranasa l route for 30 days. active Not Available Not Available No t Available sertraline 50 mg tablet active Not Available Not Available Not Available amoxicillin 875 mg-potassiu m clavulanate 125 mg tablet TAKE 1 TABLET BY MOUTH TWICE A DAY FOR 10 DAYS 04/15 completed Not Available Not Available Not Available oxycodone 5 mg tablet TAKE 1 TABLET BY MOUTH EVERY 6 HOURS NEEDED FOR PAIN PARTIAL FILL UPON PATIENT REQUEST. active Not Available Not Available No t Available clonazepam 1 mg disintegrat ing tablet Place 1 tablet twice a day by transling ual route. active Not Available Not Available No t Available ciprofloxac in 0.3 %-dexametha sone 0.1 % ear drops,suspe nsion INSTILL 4 DROPS INTO AFFECTED EAR EVERY 12 HOURS FOR 7 DAYS 04/15 completed Not Available Not Available Not Available duloxetine 20 mg capsule,del ayed release Take 1 capsule twice a day by oral route. active Not Available Not Available No t Available pregabalin 100 mg capsule TAKE 1 CAPSULE BY MOUTH TWICE A DAY active Not Available Not Available No t Available Ambien CR 6.25 mg tablet,exte nded release Take 1 tablet every day by oral route. active Not Available Not Available No t Available diclofenac 1 % topical gel APPLY 2 GRAMS TO THE AFFECTED AREA(S) BY TOPICAL ROUTE 4 TIMES PER DAY active Not Available Not Available No t Available Vitals Date Recorded Body height Body mass index (BMI) Body weight Provider Name and Address Organization Details Last Updated DateTime 04/15/2024 175.26 cm 33.2 kg/m2 756703.28 g Thalia Andres [place] - [facility] 04/15/2024 13:48:02 Social History None recorded. Functional Status None recorded. Mental Status None recorded. Family History Nothing Reported. Medical History Condition Response Arthritis Y Anxiety Y Depression Y Past Encounters Encounter ID Performer Location Encounter Start Date Encounter Closed Date Diagnosis/Indication Diagnosis SNOMED-CT Code Diagnosis ICD10 Code Diagnosis Note [id number] PEDRO LUIS VALDERRAMA MD [facility] [address] [address] 04/15/2024 13:06:18 04/15/2024 14:44:42 Chronic right myringitis 0749335495 492048 H73.11 48 yo M presents after right sided ear infection. A small amount of residual mucus was suctioned, with subjective improvemen t. Audiogram showed normal hearing. I recommende d another course of drops and dry ear precaution s. Nasal congestion 0400788 0 R09.81 He has a secondary concern for nasal congestion . Turbinates are noted to be hypertroph ic. I sent in fluticason e. Follow up with nasal endo if no improvemen t. Abnormal a uditory perception 69098416 H93.299 Audiologic al evaluation results: Right ear: Normal hearing with excellent word recognitio n. Left ear: Normal hearing with excellent word recognitio n. Tympanomet ry: Right Ear:Type A Left Ear:Type A Health Concerns Section Related Observation LastModified by Organization Detai ls LastModified Time None Recorded Concern Status LastModified by Organization Details LastModified Time None Recorded Advance Directives Directive None Recorded Payers Insurance Date Sequence Insurance Name Policy Number Policy Field Covered Member ID Field Member ID Guarantor Name 08/01/2024 1 [place] [facility] Garret Cunningham [id number] Garret Cunningham 09/27/2024 1 [facility] (MEDICAID HMO) REGGIE Garret Cunningham [id number] Garret Cunningham Notes Date Note Type Note Provider Name and Address Organization Details Recorded Time 04/15/2024 text/html 48 yo M with right sided nasal congestion, feels cannot breathe properly in the nose. The right ear with frequent infections and pain. Feels blocked. No recent abx. Since most recent visit, was on abx July to November. Has waited for some time for the appt. No pain today. No hearing tests. Some nosebleeds on the right. No nasal sprays. Previously on Afrin. PEDRO LUIS VALDERRAMA MD [address] [place] [address], [place], [address], [facility] - [facility] 04/22/2024 10:38:44
--- OUTSIDE RECORDS SUMMARY | 2024-11-26 06:13 | XMS_ITS | Clinical Summary ---
Author Organization 175 [facility] Address [address] [place] [address] Phone Care Team Providers Care Watershed Coordinator Name Role Phone Jodi Mooney MD Primary Care Provider [phone] Allergies Active Allergy Reactions Criticality Noted Date [...] His MRI of the cervical spine from [place] dated 04/25/2024. This did show multilevel cervical [...] Encounters Date Type Department Care Team Description 09/20/2024 Telephone Adult [address] [address] Hermila Dias MA Provider Call Back 09/12/2024 12:45 PM EDT Office Visit Adult Medicine [address] [place] [address] Billie Polk PA Fibromyalgia (Primary Dx); Screen for colon cancer 09/04/2024 6:03 PM EDT - 09/04/2024 11:59 PM EDT Hospital Encounter [facility] MRI [address] [place] [phone] Discharge Disposition: Home or Self Care from [...] 76 09/12/2024 12:58 PM EDT Temperature 36.6 C (97.8 F) 09/12/2024 12:58 PM EDT Respiratory Rate 16 09/12/2024 12:58 PM EDT Oxygen Saturation 98% 09/12/2024 12:58 PM EDT Inhaled Oxygen Concentration - - Weight 100 kg (221 lb) 09/12/2024 12:58 PM EDT Height 175.3 cm (5' 9 ) 09/12/2024 12:58 PM EDT Body Mass Index 32.64 09/12/2024 12:58 PM EDT Plan of Treatment Upcoming Encounters Date Type Department Care Team (Late st Contact Info) Description 12/10/2024 2:00 PM EDT Appointment [facility] Endoscopy [address] [place] [address] Jeremi Pritchard MD [address] [address] 12/16/2024 1:15 PM EDT Office Visit Adult Medicine [address] [address] Billie Polk PA [address] [place] [address] Health Maintenance Due Date Last Done Comments Hepatitis A Vaccines (1 of 2 - Risk 2-dose series) 1992 Hepatitis B Vaccines (1 of 3 - 19+ 3-dose series) 1992 Pneumococcal Vaccine: 50+ Years (1 of 2 - PCV) 1992 Colorectal Cancer Screening: Colonoscopy 04/16/2022 Social Influencers of Health Screening 04/16/2022 Zoster Vaccines (1 of 2) 11/26/2023 COVID-19 Vaccine (3 - 2023-2 5 season) 2024 01/22/2021, 12/17/2020 Depression Screening 05/08/2024 Influenza Vaccine (#1) 2025 0, 06/25/2019, 04/24/2018 Cholesterol Screening (Lipid Panel) 07/15/2026 [...] Routine 09/12/2024 12:20 PM EDT Fibromyalgia Polyarthralgia ANTINEURONAL NUCLEAR ANTIBODY, TYPE 1 Routine 09/12/2024 12:20 PM EDT Fibromyalgia Polyarthralgia HEMOGLOBIN A1C Routine 09/12/2024 12:20 PM EDT Bilateral hand pain MR WRIST WO CONTRAST RIGHT Routine 09/04/2024 8:19 PM EDT Bilateral hand pain LIPID PANEL Routine 07/15/2021 HEPATITIS C SCREENING Routine 06/25/2019 HIV SCREENING Routine 06/25/2019 from Last 3 Months or Most Recently Relevant to Health Maintenance Results * Antineuronal nuclear antibody, type 1 (09/12/2024 12:20 PM EDT) Interpretation See Note 09/21/2024 1:39 AM EDT [facility] Comment: NEGATIVE This test did not detect abnormal levels of anti-Hu antibodies. Technical Results See Note 025 1:39 AM EDT [facility] Comment: Interpretive Result Table INTERPRETIVE RESULT: Negative TEST: anti-Hu TECHNICAL RESULT: <1:100 REFERENCE RANGE: Serum <1:100 Methods See Note 09/21/2024 1:39 AM [facility] Comment: Detection of antibodies was performed by automated nanoliter scale immunoassay. Although rare, false positive or false negative results may occur. All results should be interpreted in the context of clinical findings, relevant history, and other laboratory data. Comments See Note 09/21/2024 1:39 AM [facility] Comment: Comments: This result does not exclude a diagnosis of an autoimmune etiology for the neurological symptoms associated with paraneoplastic disorder. Recommendations: Health care providers, please contact the [facility] Client Services Department at if you wish to speak with a clinical senior professional services consultant regarding this test result. Other testing available: [facility] currently offers the following antibody tests: anti-amphiphysin, anti-CASPR2, anti-CV2, anti-GAD65, anti-ganlionic nAChR, anti-LGI1, anti-Ma, anti-Ta, anti-NMDA, anti-Recoverin, anti-Ri, anti-VGCC, anti-VGKC, anti-Yo, and anti-Zic4. Please contact the [facility] Client Services Department or visit [facility] [employer] for information regarding additional testing that may be appropriate based on this individual's clinical presentation. Background information: Paraneoplastic neurological syndromes or disorders (PNS or PND) are rare immune-mediated disorders resulting from nervous system damage due to the remote effects of a tumor. PND of the central nervous system may occur in association with either onconeural antibodies directed against intracellular antigens, or antibodies targeted against neuronal surface antigens. These autoantibodies have been associated with various clinical presentations and malignancies. References See Note 09/21/2024 1:39 AM EDT [facility] Comment: 1. ABHIJIT Flores, et al. (2011) Eur J Neurol 18: 19-e3. (PMID: 46721762) 2. Sylvester Caraballo et al. (2012) J Neurol Neurosurg Psychiatry 83: 638-45. (PMID: 58916627) This test was developed and its analytical performance characteristics have been determined by [facility]. It has not been cleared or approved by the U.S. Food and Drug Administration. This assay has been validated pursuant to the CLIA regulations and is used for clinical purposes. Laboratory oversight provided by Anthony Delgado M.D., Ph.D., CLIA license black, [facility] (CLIA# [id number]) Testing performed at: [facility] [address] [place] [address] Test Performed at: [facility] [address] [place] [address], [address] [place] [address] Toña Delgado MD, PhD Blood Venous blood specimen / Unknown Venipuncture / Unknown 09/12/2024 12:20 PM EDT 09/12/2024 12:20 PM EDT us Francisca Walton MD LAB BLOOD ORDERABLES Final Re sult [facility] [address] [place] [address] * CBC auto differential (09/12/2024 12:20 PM EDT) WBC 5.9 4.8 - 10.8 K/[facility] LAB HEMETOLOGY METHOD 09/12/2024 2:14 PM EDT [facility] RBC 4.70 4.50 - 5.50 M/mcL LAB HEMETOLOGY METHOD 09/12/2024 2:14 PM EDT [facility] Hemoglobin 14.5 13.5 - 17.5 g/dL LAB HEMETOLOGY METHOD 09/12/2024 2:14 PM EDT [facility] Hematocrit 43.2 42.0 - 54.0 % LAB HEMETOLOGY METHOD 09/12/2024 2:14 PM EDT [facility] MCV 92.7 79.0 - 98.0 FL LAB HEMETOLOGY METHOD 09/12/2024 2:[address] [facility] MCH 31.1 27.0 - 32.0 pcg LAB HEMETOLOGY METHOD 09/12/2024 2:[address] [facility] MCHC 33.6 32.0 - 37.0 g/dL LAB HEMETOLOGY METHOD 09/12/2024 2:[address] [facility] RDW 11.4 11.0 - 15.0 % LAB HEMETOLOGY METHOD 09/12/2024 2:[address] [facility] Platelets 355 130 - 400 K/mcL LAB HEMETOLOGY METHOD 09/12/2024 2:14 PM EDT [facility] MPV 9.5 7.0 - 11.0 FL LAB HEMETOLOGY METHOD 09/12/2024 2:14 PM EDT [facility] NRBC 0.0 <1.0 % LAB HEMETOLOGY METHOD [facility] NRBC Absolute 0.00 <0.10 K/mcL LAB HEMETOLOGY METHOD 09/12[facility]2024 [facility] Neutrophils Relative 52.3 % LAB HEMETOLOGY METHOD 09/12/2024 2[facility] Lymphocytes Relative 36.2 % LAB HEMETOLOGY METHOD 09/12/2024 2:[address] [facility] Monocytes Relative 8.6 % LAB HEMETOLOGY METHOD 09/12/2024 2:[address] [facility] Eosinophils Relative 1.9 % LAB HEMETOLOGY METHOD 09/12/2024 2:[address] [facility] Basophils Relative 0.7 % LAB HEMETOLOGY METHOD 09/12/2024 2:[address] [facility] Immature Granulocytes Relative 0.3 % LAB HEMETOLOGY METHOD 09/12/2024 2:[address] [facility] Neutrophils Absolute 3.09 1.50 - 7.00 K/mcL LAB HEMETOLOGY METHOD 09/12/2024 2:[address] [facility] Lymphocytes Absolute 2.14 1.00 - 5.00 K/mcL LAB HEMETOLOGY METHOD 09/12/2024 2:[address] [facility] Monocytes Absolute 0.51 0.20 - 1.00 K/mcL LAB HEMETOLOGY METHOD 09/12/2024 2:[address] [facility] Eosinophils Absolute 0.11 0.00 - 0.50 K/mcL LAB HEMETOLOGY METHOD 09/12/2024 2:[address] [facility] Basophils Absolute 0.04 0.00 - 0.20 K/mcL LAB HEMETOLOGY METHOD 09/12/2024 2:[address] [facility] Immature Granulocytes Absolute 0.02 0.00 - 0.03 K/mcL LAB HEMETOLOGY METHOD 09/12/2024 2:[address] [facility] Blood Venous blood specimen / Unknown Venipuncture / Unknown 09/12/2024 12:20 PM EDT 09/12/2024 12:20 PM EDT us Francisca Walton MD LAB BLOOD ORDERABLES Final Re sult Performing Organization Address City/[facility]/ZIP Co de Phone Number [facility] [address] [place] [address], [place] [phone] * Sedimentation rate (09/12/2024 12:20 PM EDT) Pathologist [facility] Sed Rate 5 0 - 15 mm/hr LAB HEMETOLOGY METHOD 09/12/2024 2:10 PM EDT [facility] Blood Venous blood specimen / Unknown Venipuncture / Unknown 09/12/2024 12:20 PM EDT 09/12/2024 12:20 PM EDT us Francisca Walton MD LAB BLOOD ORDERABLES Final Re sult Performing Organization Address [facility] Co de Phone Number [facility] [address] [place] [address], [place] [phone] * Rheumatoid factor (09/12/2024 12:20 PM EDT) Pathologist [facility] Rheumatoid Factor <10.0 <15.0 I Unit/mL LAB CHEMISTRY METHOD 09/12/2024 2:50 PM EDT [facility] Blood Venous blood specimen / Unknown Venipuncture / Unknown 09/12/2024 12:20 PM EDT 09/12/2024 12:20 PM EDT us Francisca Walton MD LAB BLOOD ORDERABLES Final Re sult Performing Organization Address City/[facility]/ZIP Co de Phone Number [facility] [address] [place] [address], [place] [phone] * C-reactive protein (09/12/2024 12:20 PM EDT) C-Reactive Protein 0.30 <=0.50 mg/dL LAB CHEMISTRY METHOD 09/12/2024 2:50 PM EDT [facility] Blood Venous blood specimen / Unknown Venipuncture / Unknown 09/12/2024 12:20 PM EDT 09/12/2024 12:20 PM EDT us Francisca Walton MD LAB BLOOD ORDERABLES Final Re sult Performing Organization Address City/[facility]/ZIP Co de Phone Number [facility] [address] [place] [address], [place] [phone] * Uric acid (09/12/2024 12:20 PM EDT) Uric Acid 6.0 3.7 - 9.2 mg/dL LAB CHEMISTRY METHOD 09/12/2024 2:50 PM EDT [facility] Blood Venous blood specimen / Unknown Venipuncture / Unknown 09/12/2024 12:20 PM EDT 09/12/2024 12:20 PM EDT us Francisca Walton MD LAB BLOOD ORDERABLES Final Re sult Performing Organization Address [facility] de Phone Number [facility] [address] [place] [address], [place] [phone] * Hemoglobin A1c (09/12/2024 12:20 PM EDT) Hemoglobin A1C 5.5 <6.5 % LAB CHEMISTRY METHOD 09/12/2024 10:10 PM EDT [facility] Mean Bld Glu Estim. 111 mg/dL LAB CHEMISTRY METHOD 09/12/2024 10:10 PM EDT [facility] Blood Venous blood specimen / Unknown Venipuncture / Unknown 09/12/2024 12:20 PM EDT 09/12/2024 12:20 PM EDT us Francisca Walton MD LAB BLOOD ORDERABLES Final Re sult [facility] [address] [place] [address], [place] [phone] * MR Wrist wo Contrast Right (09/04/2024 8:19 PM EDT) Anatomical Region Laterality Modality Upper Extremities, Wrist Right Magneti c Resonance 09/05/2024 3:21 AM EDT Impressions 09/05/2024 3:28 AM EDT 1. Degenerative changes of the right wrist 2. 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 FINDINGS: Bone/cartilage: No acute fracture or dislocation. Mild negative ulnar variance. Cystic change involving the lunate and capitate. Hypertrophic lipping of the thumb CMC and STT articulation. Bone islands of the lunate and triquetrum. Triangular fibrocartilage:Degenerative signal without tear. Ligaments:The scapholunate and lunotriquetral ligaments are intact. Central perforation of the scapholunate ligament. Tendons:Flexor and extensor tendons are normal in position, signal and configuration. Carpal tunnel:Normal. Median nerve position, signal and morphology are normal. Guyon's Canal:Normal. Ulnar nerve position, signal and morphology are normal. 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 Right wrist joint fluid. Procedure Note Aydee Ballard [...] Signed Date: 09/05/2024 03:28 ET Workstation ID: [id number] Transcribed By: Self Edit Transcribed Date: 09/05/2024 03:21 ET Result [facility] Francisca Walton MD IMG MRI PROCEDURES Final Resu lt * (ABNORMAL) Lipid panel (07/15/2021) [facility] LDL/HDL Ratio 5(A) 0 - 4 Triglycerides 253(A) 0 - 150 mg/dL Cholesterol 188 0 - 200 mg/dL HDL 41 >=40 mg/dL LDL Cholesterol 97 0 - 100 mg/dL Blood Venous blood specimen / Unknown Result [facility] Historical Provider LAB BLOOD ORDERABLES Simona l Result * HIV Screening (06/25/2019) [facility] HIV Screening ABSTRACTED Result [facility] Provider HEALTH MAINTENANCE Final Result * Hepatitis C Screening (06/25/2019) Hepatitis C Screening ABSTRACTED us Historical Provider HEALTH MAINTENANCE Final Result from Last 3 Months or Most Recently Relevant to Health Maintenance Insurance [facility] [employer] Care Teams Watershed Coordinator Relationship Specialty Start Date End Date Jodi Mooney MD [address] [place] [address] PCP - General 08/30/22
--- OUTSIDE RECORDS SUMMARY | 2024-11-26 06:13 | XMS_ITS | Encounter Summary ---
Author Organization [facility] Address [address] [place] [address] Care Team Providers Care Program Manufacturing Leader Name Role Phone Herrera Tucker MD Primary Care Provider [phone] Hollis Garcia MD Primary Care Provider Herrera Tucker MD Primary Care Provider [phone] Bertin Castellon PA-C Primary Care Provider [phone] Pam Feng MD Unavailable [phone] Gail Pagan PA-C Unavailable [phone] Dustin Palacios PA-C Unavailable Jorge Cheng Primary Care Provider Jodi Mooney MD Primary Care Provider [phone] Encounter Details Date Type Department Care Team Description 10/31/2018 Clinical Specialty Rep Report Medical Records [address] [place] [address] Pam Feng MD [address] [place] [address] [address] [place], [place] [id number] Social History Tobacco Use Types Packs/Day Years [...] on filedocumented in this encounter Care Teams Program Manufacturing Leader Relationship Specialty Start Date End Date Herrera Tucker MD [address] [place] [address] PCP - General Internal Medicine 12/20/18 06/30/19 Hollis Garcia MD [address] [place] [address] PCP - General Internal Medicine 07/01/19 05/17/20 Herrera Tucker MD [address] [place] [address] PCP - General 07/31/18 12/19/18 Bertin Castellon PA-C [address] [place] [address] PCP - General Internal Medicine 05/18/20 01/16/22 Jorge Cheng [address] [place] [address] PCP - General Internal Medicine 01/17/22 08/29/22 Jodi Mooney MD [address] [place] [address] PCP - General Internal Medicine 08/30/22 Pam Feng MD [address] [address] Surgeon Neurosurgery 10/12/21 Gail Pagan PA-C [address] [address] Specialist Neurosurgery 10/12/21 Dustin Palacios PA-C [address] [address] Specialist Neurosurgery 10/12/21 documented as of this encounter
== END 2024-11-26 06:12 | disposition home or self-care (01) ==
LOC: CF 06:11
PROVIDERS: Visit Provider Anesthesiology
DX: Z13.89 Encounter for screening for other disorder (principal)
CPT/HCPCS: J2003; J2795; J3301; Q9967

== ENCOUNTER 2025-04-11 12:54 | Outpatient (REF) | payer OTHER, SELFPAY ==
--- NOTE | 2025-04-11 12:57 | EMG_ITS ---
Chief complaint: Chronic arm pain, history of fibromyalgia Last EMG [address] Gallardo was normal. Reason for referral: Evaluate for neuropathy versus radiculopathy Referred by: Dr. Francisca Walton Procedure done: Bilateral upper extremities NCS/EMG Precautions and/or limitations: None The limb temperature was monitored continuously and remained between 32-36 degrees C during the performance of the NCS. Nerve Conduction Studies Anti Sensory Summary Table ?Stim Site NR Onset (ms) Norm Onset (ms) Peak (ms) Norm Peak (ms) O-P Amp (?V) Norm O-P Amp Site1 Site2 Delta-0 (ms) Dist (cm) Akash (m/s) Norm Akash (m/s) Left Median Anti Sensory (2nd Digit) Wrist ? 2.3 3.1 <3.6 25.4 >10 Wrist 2nd Digit 2.3 14.0 61 Right Median Anti Sensory (2nd Digit) Wrist ? 2.4 2.9 <3.6 35.9 >10 Wrist 2nd Digit 2.4 14.0 58 Right Radial Anti Sensory (Thumb) Forearm ? 1.5 2.0 <3.1 18.5 Forearm Thumb 1.5 0.0 Left Ulnar Anti Sensory (5th Digit) Wrist ? 2.3 3.0 <3.7 24.5 >15.0 Wrist 5th Digit 2.3 14.0 61 Right Ulnar Anti Sensory (5th Digit) Wrist ? 2.0 3.2 <3.7 20.7 >15.0 Wrist 5th Digit 2.0 14.0 70 Motor Summary Table ?Stim Site NR Onset (ms) Norm Onset (ms) O-P Amp (mV) Norm O-P Amp iAmp (mV) Amp (1st) (%) Site1 Site2 Delta-0 (ms) Dist (cm) Akash (m/s) Norm Akash (m/s) Left Median Motor (Abd Poll Brev) Wrist ? 3.4 <3.9 11.3 >4.5 12.8 100.0 Elbow Wrist 4.2 0.0 >45 Elbow ? 7.6 10.5 12.0 92.9 Right Median Motor (Abd Poll Brev) Wrist ? 3.1 <3.9 9.1 >4.5 10.8 100.0 Elbow Wrist 4.1 22.0 54 >45 Elbow ? 7.2 8.0 9.7 87.9 Left Ulnar Motor (Abd Dig Minimi) Wrist ? 2.8 <3.0 7.2 >5 8.9 100.0 B Elbow Wrist 3.5 21.0 60 >45 B Elbow ? 6.3 6.8 8.6 94.4 A Elbow B Elbow 1.4 10.0 71 >45 A Elbow ? 7.7 6.7 8.4 93.1 Right Ulnar Motor (Abd Dig Minimi) Wrist ? 2.7 <3.0 7.1 >5 8.6 100.0 B Elbow Wrist 3.8 22.0 58 >45 B Elbow ? 6.5 6.7 8.2 94.4 A Elbow B Elbow 1.0 10.0 100 >45 A Elbow ? 7.5 6.6 8.1 93.0 EMG ?Side Muscle Nerve Root Ins Act Fibs Psw Amp Dur Poly Recrt Int Pat Comment Right 1stDorInt Ulnar C8-T1 Nml Nml Nml Nml Nml 0 Nml Complete Right FlexCarRad Median C6-7 Nml Nml Nml Nml Nml 0 Nml Complete Right Biceps Musculocut C5-6 Nml Nml Nml Nml Nml 0 Nml Complete Right Triceps Radial C6-7-8 Nml Nml Nml Nml Nml 0 Nml Complete Right Deltoid Axillary C5-6 Nml Nml Nml Nml Nml 0 Nml Complete Left 1stDorInt Ulnar C8-T1 Nml Nml Nml Nml Nml 0 Nml Complete Left FlexCarRad Median C6-7 Nml Nml Nml Nml Nml 0 Nml Complete Left Biceps Musculocut C5-6 Nml Nml Nml Nml Nml 0 Nml Complete Left Triceps Radial C6-7-8 Nml Nml Nml Nml Nml 0 Nml Complete Left Deltoid Axillary C5-6 Nml Nml Nml Nml Nml 0 Nml Complete FINDINGS: All motor and sensory nerves tested showed normal latencies, amplitudes and conduction velocities. Concentric needle EMG was performed in selected muscles of the bilateral upper extremities. Study did not reveal signs of electric abnormalities as shown in the table above. IMPRESSION: 1. This is a normal study. 2. There is no electrodiagnostic evidence for median neuropathy, ulnar neuropathy, brachial plexopathy, or cervical radiculopathy. Thank you for your kind referral. Fatemeh James MD, [place] Board Certified, [place] Board [employer] and Rehabilitation (ABPMR) Board Certified, [place] Board of Electrodiagnostic Medicine (ABEM) CODIN 65342 x2 extremity MTDD
--- OUTSIDE RECORDS SUMMARY | 2025-04-11 16:45 | XMS_ITS ---
Author Name [facility] Organization Unknown Care Team Organization Name Specialty Phone Email Start Date End Da te [facility] Jorge Cheng Primary Care 03/15/202212/06
== END 2025-04-11 12:55 | disposition home or self-care (01) ==
LOC: HO.NEURO 12:54
PROVIDERS: PCP Internal Medicine; Visit Provider Orthopaedic Surgery
DX: R20.0 Anesthesia of skin (principal); R20.2 Paresthesia of skin; G89.29 Other chronic pain; M79.601 Pain in right arm; M79.602 Pain in left arm
CPT/HCPCS: 95886; 95911

== ENCOUNTER → 2025-04-11 12:57 | Outpatient (BNV) | payer OTHER, SELFPAY | PROVIDERS: PCP Internal Medicine; Visit Provider Physical Medicine & Rehabilitation | DX: R20.0 Anesthesia of skin (principal) | CPT/HCPCS: 95886; 95911 ==